=== PATIENT | male | born 1945 | race Caucasian/White ===

== ENCOUNTER 2018-10-19 23:59 | Inpatient (IN) | payer MEDICAID, MEDICARE ==
[~2018-10-19] VITALS: Ht 172.7 cm; Wt 59.0 kg
[2018-10-20] MEDS ORDERED: NEURONTIN800 MG ORAL (00:16)
[2018-10-20 00:30] VITALS: BP 127/76
[2018-10-20] MEDS ORDERED: cefTRIAXone 1 GM in NS 55 ML IVPB ONE (00:45)
--- NOTE | 2018-10-20 01:35 | Emergency Room Report ---
History of Present Illness General Chief Complaint: Upper Extremity Injury Source: Patient Present Illness HPI Patient is a 73-year-old male presented after increased right upper extremity swelling. Patient reports of increased painful swelling to the right upper extremity after injecting heroin. Patient states that he had onset of symptoms approximately 4 days ago.Patient denies any fever. Allergies: Coded Allergies: No Known Allergies (Unverified , 10/20/18) Patient History Past Medical History: see triage record Reviewed Nursing Documentation: PMH: Agreed; PSxH: Agreed Nursing Documentation-PMH Past Medical History: No Stated History Review of Systems All Other Systems: negative except mentioned in HPI Physical Exam Vital Signs Date Time Temp Pulse Resp B/P (MAP) Pulse Ox O2 Delivery O2 Flow Rate FiO2 10/20/18 00:11 98.8 97 16 127/76 97 Room Air Sp02 EP Interpretation: reviewed, normal General Appearance: normal inspection, well appearing, no apparent distress, alert, GCS 15 Head: atraumatic ENT: normal ENT inspection, hearing grossly normal, normal voice Neck: normal inspection, full range of motion, supple, no bony tend Respiratory: normal inspection, lungs clear, normal breath sounds, no respiratory distress, no retraction, no wheezing Cardiovascular #1: regular rate, rhythm, no edema Gastrointestinal: normal inspection, normal bowel sounds, non tender, soft, no guarding, no hernia Genitourinary: no CVA tenderness Musculoskeletal: normal inspection, back normal, normal range of motion Neurologic: normal inspection, alert, oriented x3, responsive, 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, speech normal Psychiatric: normal inspection, judgement/insight normal, mood/affect normal Skin: normal color, no rash, other - erythema and fluctuance right upper arm near elbow Procedures Incision and Drainage Incision and Drainage : Consent: Emergent Blade Size: 11 I & D Procedure: betadine prep, sterile drapes applied, sterile dressing applied Wound Location: upper extremity Wound Length (cm): 1 Wound Explored: clean Irrigated w/ Saline (ccs): 10 Anesthesia: Lidocaine w/ Epi Volume Anesthetic (ccs): 4 Sling Applied?: Yes Complications: None Medical Decision Making Diagnostic Impression: Primary Impression: Cellulitis and abscess of upper extremity ER Course Patient presented for right upper extremity pain and swelling. Differential diagnosis includes is not limited to abscess, necrotizing fasciitis, cellulitis among others. Laboratory testing was ordered due to patient's complexity of medical condition.Patient was consented for incision and drainage and abscess was drained with a 15 blade. Large amount of purulent material was expressed. Patient was noted to have some cellulitis to the upper extremity and will likely require IV antibiotics. Dr. Filipe Coffman was contacted for inpatient management Labs Test 10/20/18 01:56 White Blood Count 11.6 K/UL (4.8-10.8) Red Blood Count 5.76 M/UL (4.70-6.10) Hemoglobin 16.0 G/DL (14.2-18.0) Hematocrit 47.5 % (42.0-52.0) Mean Corpuscular Volume 82 FL (80-99) Mean Corpuscular Hemoglobin 27.7 PG (27.0-31.0) Mean Corpuscular Hemoglobin Concent 33.6 G/DL (32.0-36.0) Red Cell Distribution Width 13.1 % (11.6-14.8) Platelet Count 128 K/UL (150-450) Mean Platelet Volume 8.0 FL (6.5-10.1) Neutrophils (%) (Auto) 73.1 % (45.0-75.0) Lymphocytes (%) (Auto) 19.7 % (20.0-45.0) Monocytes (%) (Auto) 5.4 % (1.0-10.0) Eosinophils (%) (Auto) 1.1 % (0.0-3.0) Basophils (%) (Auto) 0.7 % (0.0-2.0) Sodium Level 132 MMOL/L (136-145) Potassium Level 3.8 MMOL/L (3.5-5.1) Chloride Level 97 MMOL/L (98-107) Carbon Dioxide Level 29 MMOL/L (21-32) Anion Gap 7 mmol/L (5-15) Blood Urea Nitrogen 20 mg/dL (7-18) Creatinine 0.9 MG/DL (0.55-1.30) Estimat Glomerular Filtration Rate mL/min (>60) Glucose Level 95 MG/DL (74-106) Lactic Acid Level 1.50 mmol/L (0.4-2.0) Calcium Level 9.3 MG/DL (8.5-10.1) Total Bilirubin 0.8 MG/DL (0.2-1.0) Aspartate Amino Transf (AST/SGOT) 34 U/L (15-37) Alanine Aminotransferase (ALT/SGPT) 50 U/L (12-78) Alkaline Phosphatase 113 U/L (46-116) Total Protein 8.7 G/DL (6.4-8.2) Albumin 3.5 G/DL (3.4-5.0) Globulin 5.2 g/dL Albumin/Globulin Ratio 0.7 (1.0-2.7) Last Vital Signs Date Time Temp Pulse Resp B/P (MAP) Pulse Ox O2 Delivery O2 Flow Rate FiO2 10/20/18 00:11 98.8 97 16 127/76 97 Room Air Status: improved Disposition: PLACE IN OBSERVATION Condition: Serious Referrals: NOT CHOSEN IPA/,REFERRING (PCP) Aramis Conti MD Oct 20, 2018 01:35
[2018-10-20 02:10] LABS: BASOPHILS % (AUTO) 0.7 % (0.0-2.0); EOSINOPHILS % (AUTO) 1.1 % (0.0-3.0); HEMATOCRIT 47.5 % (42.0-52.0); LYMPHOCYTES % (AUTO) 19.7 % (20.0-45.0); MEAN CORPUSCULAR VOLUME 82 FL (80-99); MONOCYTES % (AUTO) 5.4 % (1.0-10.0); NEUTROPHILS % (AUTO) 73.1 % (45.0-75.0); PLATELET COUNT 128 K/UL (150-450); RED BLOOD COUNT 5.76 M/UL (4.70-6.10); RED CELL DISTRIBUTION WIDTH 13.1 % (11.6-14.8); WHITE BLOOD COUNT 11.6 K/UL (4.8-10.8)
[2018-10-20 02:21] LABS: ANION GAP 7 mmol/L (5-15); BLOOD UREA NITROGEN 20 mg/dL (7-18); CALCIUM 9.3 MG/DL (8.5-10.1); CARBON DIOXIDE 29 MMOL/L (21-32); CHLORIDE 97 MMOL/L (98-107); CREATININE 0.9 MG/DL (0.55-1.30); POTASSIUM 3.8 MMOL/L (3.5-5.1); SODIUM 132 MMOL/L (136-145)
[2018-10-20 02:26] LABS: ALANINE AMINOTRANSFERASE 50 U/L (12-78); ALBUMIN 3.5 G/DL (3.4-5.0); ALBUMIN/GLOBULIN RATIO 0.7 (1.0-2.7); ALKALINE PHOSPHATASE 113 U/L (46-116); ASPARTATE AMINO TRANSFERASE 34 U/L (15-37); BILIRUBIN,TOTAL 0.8 MG/DL (0.2-1.0)
[2018-10-20 04:00] VITALS: BP 120/64
[2018-10-20 08:00] VITALS: BP 125/66
--- NOTE | 2018-10-20 11:28 | Consultation ---
Consult Note Consult Note asked to eval for low Na Patient is a 73-year-old male presented after increased right upper extremity swelling. Patient reports of increased painful swelling to the right upper extremity after injecting heroin. Patient states that he had onset of symptoms approximately 4 days ago.Patient denies any fever. Allergies: Coded Allergies: No Known Allergies (Unverified , 10/20/18) Assessment/Plan Low Na Etiologyn ? comments after further blood and urine results Cellulitis right arm after heroin injection Praful Bethea MD Oct 20, 2018 11:28
[2018-10-20 12:00] VITALS: BP 119/67
[2018-10-20] MEDS: Docusate 100mg cap ORAL SCH ×2 (12:26→17:02)
--- NOTE | 2018-10-20 14:27 | Consultation ---
History of Present Illness General Date patient seen: Oct 20, 2018 Reason for Hospitalization: Upper Extremity Injury Present Illness HPI 73 year old male with history of IVDA presented with right upper arm cellulitis / abscess. injecting heroin recently and developed worsening pain and swelling. came for evaluation and noted to have abscess s/p I&D. admitted for abx and care. surgery called to evaluate and assist with care. patient seen, chart reviewed, patient examined. Allergies: Coded Allergies: No Known Allergies (Unverified , 10/20/18) Medication History Scheduled Gabapentin* (Neurontin*), 800 MG ORAL Q8H, (Reported) Patient History History Provided By: Patient, Medical Record, PMD Healthcare decision maker Resuscitation status Advanced Directive on File Past Medical/Surgical History Past Medical/Surgical History: (1) Injury of right upper extremity (2) Cellulitis and abscess of upper extremity (3) Pain management (4) Drug addiction Review of Systems Review of Symptoms General ROS: no weight loss or fever Psychological ROS: no depression or mood changes, no memory loss Ophthalmic ROS: no visual changes or eye irritation ENT ROS: no nasal congestion, hearing loss, dizziness Allergy and Immunology ROS: no allergic symptoms or urticaria Hematological and Lymphatic ROS: no swollen glands, unusual bleeding or bruising Endocrine ROS: no polyuria, polydipsia, weight changes, temperature intolerance Respiratory ROS: no cough, shortness of breath, or wheezing Cardiovascular ROS: no chest pain or dyspnea on exertion Gastrointestinal ROS: denies abdominal pain, no bright red blood in stool. Musculoskeletal ROS: no myalgias or arthralgias Neurological ROS: no TIA or stroke symptoms Dermatological ROS: no new or changing skin lesions, rashes or pruritis Physical Exam Physical Exam General appearance: alert, cooperative, no distress, appears stated age Head: Normocephalic, without obvious abnormality, atraumatic Eyes: conjunctivae/corneas clear. PERRL, EOM's intact. Fundi benign Throat: Lips, mucosa, and tongue normal. Teeth and gums normal Neck: supple, symmetrical, trachea midline, no adenopathy, thyroid: not enlarged, symmetric, no tenderness/mass/nodules, no carotid bruit and no JVD Lungs: clear to auscultation bilaterally Heart: regular rate and rhythm, S1, S2 normal, no murmur, click, rub or gallop Abdomen: soft, non-tender. Bowel sounds normal. No masses, no organomegaly Extremities: extremities normal, atraumatic, right upper arm cellulitis Pulses: 2+ and symmetric Skin: Skin color, texture, turgor normal. No rashes or lesions Neurologic: Grossly normal Last 24 Hour Vital Signs Date Time Temp Pulse Resp B/P (MAP) Pulse Ox O2 Delivery O2 Flow Rate FiO2 10/20/18 12:00 98.7 84 20 119/67 (84) 98 10/20/18 09:52 Room Air 10/20/18 08:00 98.7 89 20 125/66 (85) 95 10/20/18 06:36 Room Air 10/20/18 04:30 98.8 84 12 120/64 97 Room Air 10/20/18 04:00 98.8 84 12 120/64 97 Room Air 10/20/18 00:30 98.8 96 16 127/76 97 Room Air 10/20/18 00:11 98.8 97 16 127/76 97 Room Air Intake and Output 10/19/18 10/20/18 19:00 07:00 Intake Total 55 ml Balance 55 ml Intake IV Total 55 ml # Voids 1 Laboratory Tests Test 10/20/18 01:56 White Blood Count 11.6 K/UL (4.8-10.8) H Red Blood Count 5.76 M/UL (4.70-6.10) Hemoglobin 16.0 G/DL (14.2-18.0) Hematocrit 47.5 % (42.0-52.0) Mean Corpuscular Volume 82 FL (80-99) Mean Corpuscular Hemoglobin 27.7 PG (27.0-31.0) Mean Corpuscular Hemoglobin Concent 33.6 G/DL (32.0-36.0) Red Cell Distribution Width 13.1 % (11.6-14.8) Platelet Count 128 K/UL (150-450) L Mean Platelet Volume 8.0 FL (6.5-10.1) Neutrophils (%) (Auto) 73.1 % (45.0-75.0) Lymphocytes (%) (Auto) 19.7 % (20.0-45.0) L Monocytes (%) (Auto) 5.4 % (1.0-10.0) Eosinophils (%) (Auto) 1.1 % (0.0-3.0) Basophils (%) (Auto) 0.7 % (0.0-2.0) Sodium Level 132 MMOL/L (136-145) L Potassium Level 3.8 MMOL/L (3.5-5.1) Chloride Level 97 MMOL/L (98-107) L Carbon Dioxide Level 29 MMOL/L (21-32) Anion Gap 7 mmol/L (5-15) Blood Urea Nitrogen 20 mg/dL (7-18) H Creatinine 0.9 MG/DL (0.55-1.30) Estimat Glomerular Filtration Rate mL/min (>60) Glucose Level 95 MG/DL (74-106) Lactic Acid Level 1.50 mmol/L (0.4-2.0) Calcium Level 9.3 MG/DL (8.5-10.1) Total Bilirubin 0.8 MG/DL (0.2-1.0) Aspartate Amino Transf (AST/SGOT) 34 U/L (15-37) Alanine Aminotransferase (ALT/SGPT) 50 U/L (12-78) Alkaline Phosphatase 113 U/L (46-116) Total Protein 8.7 G/DL (6.4-8.2) H Albumin 3.5 G/DL (3.4-5.0) Globulin 5.2 g/dL Albumin/Globulin Ratio 0.7 (1.0-2.7) L Height (Feet): 5 Height (Inches): 8.00 Weight (Pounds): 130 Medications Current Medications Medications (Trade) Dose Ordered Sig/Lana Route PRN Reason Start Time Stop Time Status Last Admin Dose Admin Acetaminophen (Tylenol) 650 mg Q4H PRN ORAL Mild Pain/Temp > 100.5 10/20/18 11:33 11/19/18 11:32 Cefepime HCl 2 gm/ Dextrose 55 ml @ 110 mls/hr EVERY 12 HOURS IV 10/20/18 14:00 10/27/18 13:59 Docusate Sodium (Colace) 100 mg THREE TIMES A DAY ORAL 10/20/18 13:00 11/19/18 12:59 10/20/18 12:26 Ondansetron HCl (Zofran) 4 mg Q6H PRN IVP Nausea & Vomiting 10/20/18 11:32 11/19/18 11:31 Pantoprazole (Protonix) 40 mg EVERY 12 HOURS ORAL 10/20/18 21:00 11/19/18 20:59 Sodium Chloride 1,000 ml @ 75 mls/hr [id number] IV 10/20/18 12:00 11/19/18 11:59 10/20/18 12:26 Vancomycin HCl (Vanco rx to dose) 1 ea DAILY PRN MISC Per rx protocol 10/20/18 12:15 11/19/18 12:14 Vancomycin HCl/ Dextrose 275 ml @ 183.333 mls/hr Q24H IVPB 10/20/18 14:30 10/25/18 14:29 Assessment/Plan Problem List: (1) Cellulitis and abscess of upper extremity Assessment & Plan: right upper arm cellulitis from IVDA with heroin. abscess s/ p I&D. on IV Abx small 1cm opening from I&D with bloody drainage packing and dressing changed at bedside by myself. wound evaluated cont with packing and dressing TID will monitor for improvement cont IV ABX AM labs will follow with recs. thank you ICD Codes: L03.119 - Cellulitis of unspecified part of limb; L02.419 - Cutaneous abscess of limb, unspecified SNOMED: [id number] Lucio Marks Oct 20, 2018 14:27
[2018-10-20] MEDS: Cefepime HCl 2 GM in D5W 55 ML IV SCH ×2 (14:32→21:09)
[2018-10-20 15:26] LABS: APPEARANCE,URINE CLEAR; BILIRUBIN, URINE NEGATIVE (NEGATIVE); COLOR,URINE BROWN; GLUCOSE, URINE (UA) NEGATIVE (NEGATIVE); KETONES,URINE NEGATIVE (NEGATIVE); LEUKOCYTE ESTERASE ,URINE 1+ (NEGATIVE); NITRITE,URINE NEGATIVE (NEGATIVE); PH,URINE 5 (4.5-8.0); PROTEIN,URINE NEGATIVE (NEGATIVE); UROBILINOGEN,URINE 8 MG/DL (0.0-1.0)
[2018-10-20] MEDS: Vancomycin 1.25gm Premix IVPB SCH (15:51)
[2018-10-20 16:00] VITALS: BP 114/61
--- NOTE | 2018-10-20 16:00 | Consultation ---
DATE OF CONSULTATION: 10/20/2018 INFECTIOUS DISEASES CONSULTATION CONSULTING PHYSICIAN: Александр Cerda M.D. PRIMARY ATTENDING PHYSICIAN: Filipe Martínez M.D. REASON FOR CONSULTATION: Right arm cellulitis, abscess. HISTORY OF PRESENT ILLNESS: This is a 73-year-old white male admitted today from home complaining of pain and swelling in right upper extremity. The patient had the injection of heroin around 4 days ago. Denies any fever. There was an abscess that was drained in the ER with removal 20 mL of pus. PAST MEDICAL HISTORY: The patient has hearing loss, cataract in both eyes, nicotine dependence. 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 ALLERGIES: Methadone. MEDICATIONS: Get a dose of ceftriaxone in the ER, getting Protonix, Colace, sodium chloride, Tylenol, Zofran. SOCIAL HISTORY: Smokes one-pack of cigarettes a day and IV drug abuse history. Denies alcohol drinking. He is single. REVIEW OF SYSTEMS: No fever. No chills. He is hard of hearing. No coughing. No shortness of breath. No nausea. No vomiting. No diarrhea. No problem passing urine. PHYSICAL EXAMINATION: VITAL SIGNS: Temperature 98.7, pulse 89, blood pressure 125/66. GENERAL APPEARANCE: Seems to be underweight, no acute distress. HEAD AND NECK: [place] conjunctiva. HEART: S1 and S2 regular. LUNGS: Clear. ABDOMEN: Soft. EXTREMITIES: Erythema, swelling, abscess in the right upper extremity above the elbow. No pedal edema. NEUROLOGIC: Awake, alert, oriented x3. LABORATORY AND DIAGNOSTIC DATA: WBC 11.6, hemoglobin 16, hematocrit 47.5, platelet 128. Sodium 132, potassium 3.8, chloride 97, bicarbonate 29, BUN 20, creatinine 0.9. Total protein is elevated at 8.7. Albumin 3.5. IMPRESSION: 1. Right upper extremity cellulitis and abscess. 2. IV drug abuse use heroin. 3. Nicotine dependence. 4. Hearing loss. 5. mild thrombocytopenia. 6. Cataract. RECOMMENDATION: We will start the patient on vancomycin and cefepime. We will obtain wound culture. Further surgical evaluation is pending. At the end of my exam, I thank Dr. Martínez, for involving me in the care of this patient. Александр Cerda M.D. DR: Rupesh JOB#: [id number] CC: JOYCE
--- NOTE | 2018-10-20 18:18 | Consultation ---
History of Present Illness General Chief Complaint: Upper Extremity Injury Present Illness Allergies: Coded Allergies: No Known Allergies (Unverified , 10/20/18) Medication History Scheduled Gabapentin* (Neurontin*), 800 MG ORAL Q8H, (Reported) Patient History Healthcare decision maker Resuscitation status Advanced Directive on File Physical Exam Last 24 Hour Vital Signs Date Time Temp Pulse Resp B/P (MAP) Pulse Ox O2 Delivery O2 Flow Rate FiO2 10/20/18 16:00 99.0 76 20 114/61 (78) 98 10/20/18 12:00 98.7 84 20 119/67 (84) 98 10/20/18 09:52 Room Air 10/20/18 08:00 98.7 89 20 125/66 (85) 95 10/20/18 06:36 Room Air 10/20/18 04:30 98.8 84 12 120/64 97 Room Air 10/20/18 04:00 98.8 84 12 120/64 97 Room Air 10/20/18 00:30 98.8 96 16 127/76 97 Room Air 10/20/18 00:11 98.8 97 16 127/76 97 Room Air Intake and Output 10/19/18 10/20/18 19:00 07:00 Intake Total 55 ml Balance 55 ml Intake IV Total 55 ml # Voids 1 Laboratory Tests Test 10/20/18 01:56 10/20/18 15:00 White Blood Count 11.6 K/UL (4.8-10.8) H Red Blood Count 5.76 M/UL (4.70-6.10) Hemoglobin 16.0 G/DL (14.2-18.0) Hematocrit 47.5 % (42.0-52.0) Mean Corpuscular Volume 82 FL (80-99) Mean Corpuscular Hemoglobin 27.7 PG (27.0-31.0) Mean Corpuscular Hemoglobin Concent 33.6 G/DL (32.0-36.0) Red Cell Distribution Width 13.1 % (11.6-14.8) Platelet Count 128 K/UL (150-450) L Mean Platelet Volume 8.0 FL (6.5-10.1) Neutrophils (%) (Auto) 73.1 % (45.0-75.0) Lymphocytes (%) (Auto) 19.7 % (20.0-45.0) L Monocytes (%) (Auto) 5.4 % (1.0-10.0) Eosinophils (%) (Auto) 1.1 % (0.0-3.0) Basophils (%) (Auto) 0.7 % (0.0-2.0) Sodium Level 132 MMOL/L (136-145) L Potassium Level 3.8 MMOL/L (3.5-5.1) Chloride Level 97 MMOL/L (98-107) L Carbon Dioxide Level 29 MMOL/L (21-32) Anion Gap 7 mmol/L (5-15) Blood Urea Nitrogen 20 mg/dL (7-18) H Creatinine 0.9 MG/DL (0.55-1.30) Estimat Glomerular Filtration Rate mL/min (>60) Glucose Level 95 MG/DL (74-106) Lactic Acid Level 1.50 mmol/L (0.4-2.0) Calcium Level 9.3 MG/DL (8.5-10.1) Total Bilirubin 0.8 MG/DL (0.2-1.0) Aspartate Amino Transf (AST/SGOT) 34 U/L (15-37) Alanine Aminotransferase (ALT/SGPT) 50 U/L (12-78) Alkaline Phosphatase 113 U/L (46-116) Total Protein 8.7 G/DL (6.4-8.2) H Albumin 3.5 G/DL (3.4-5.0) Globulin 5.2 g/dL Albumin/Globulin Ratio 0.7 (1.0-2.7) L Urine Color Brown Urine Appearance Clear Urine pH 5 (4.5-8.0) Urine Specific [place] 1.015 (1.005-1.035) Urine Protein Negative (NEGATIVE) Urine Glucose (UA) Negative (NEGATIVE) Urine Ketones Negative (NEGATIVE) Urine Blood Negative (NEGATIVE) Urine Nitrite Negative (NEGATIVE) Urine Bilirubin Negative (NEGATIVE) Urine Urobilinogen 8 MG/DL (0.0-1.0) H Urine Leukocyte Esterase 1+ (NEGATIVE) H Urine RBC 0-2 /HPF (0 - 0) H Urine WBC 2-4 /HPF (0 - 0) Urine Squamous Epithelial Cells None /LPF (NONE/OCC) Urine Bacteria Few /HPF (NONE) Urine Osmolality 498 mOsm/kg (429-449) H Urine Opiates Screen Positive (NEGATIVE) H Urine Barbiturates Screen Negative (NEGATIVE) Phencyclidine (PCP) Screen Negative (NEGATIVE) Urine Amphetamines Screen Negative (NEGATIVE) Urine Benzodiazepines Screen Negative (NEGATIVE) Urine Cocaine Screen Positive (NEGATIVE) H Urine Marijuana (THC) Screen Negative (NEGATIVE) Height (Feet): 5 Height (Inches): 8.00 Weight (Pounds): 130 Medications Current Medications Medications (Trade) Dose Ordered Sig/Lana Route PRN Reason Start Time Stop Time Status Last Admin Dose Admin Acetaminophen (Tylenol) 650 mg Q4H PRN ORAL Mild Pain/Temp > 100.5 10/20/18 11:33 11/19/18 11:32 Cefepime HCl 2 gm/ Dextrose 55 ml @ 110 mls/hr EVERY 12 HOURS IV 10/20/18 14:00 10/27/18 13:59 10/20/18 14:32 Docusate Sodium (Colace) 100 mg THREE TIMES A DAY ORAL 10/20/18 13:00 11/19/18 12:59 10/20/18 12:26 Methadone HCl (Methadone HCl) 80 mg DAILY PRN ORAL For Pain 10/20/18 15:30 10/27/18 15:29 10/20/18 15:51 Ondansetron HCl (Zofran) 4 mg Q6H PRN IVP Nausea & Vomiting 10/20/18 11:32 11/19/18 11:31 Pantoprazole (Protonix) 40 mg EVERY 12 HOURS ORAL 10/20/18 21:00 11/19/18 20:59 Sodium Chloride 1,000 ml @ 75 mls/hr [id number] IV 10/20/18 12:00 11/19/18 11:59 10/20/18 12:26 Vancomycin HCl (Vanco rx to dose) 1 ea DAILY PRN MISC Per rx protocol 10/20/18 12:15 11/19/18 12:14 Vancomycin HCl/ Dextrose 275 ml @ 183.333 mls/hr Q24H IVPB 10/20/18 14:30 10/25/18 14:29 10/20/18 15:51 Assessment/Plan Assessment: Hematology Oncology Consultation Date patient seen: Oct 20, 2018 Reason for Hospitalization: Upper Extremity Injury RFC: Thrombocytopenia and hyperproteinemia RECollin MD: Filipe Martínez 73 year old male with history of IVDA presented with right upper arm cellulitis / abscess. injecting heroin recently and developed worsening pain and swelling. came for evaluation and noted to have abscess s/p I&D. admitted for abx and care. surgery called to evaluate and assist with care. patient seen, chart reviewed, patient examined. Also renal called, heme called for low plt count and evaluation of potential bleed int he case of i&d. Allergies: No Known Allergies (Unverified , 10/20/18) Scheduled Gabapentin* (Neurontin*), 800 MG ORAL Q8H, (Reported) History Provided By: Patient, Medical Record, PMD Healthcare decision maker Resuscitation status Advanced Directive on File Past Medical/Surgical History: (1) Injury of right upper extremity (2) Cellulitis and abscess of upper extremity (3) Pain management (4) Drug addiction Review of Symptoms General ROS: no weight loss or fever Psychological ROS: no depression or mood changes Ophthalmic ROS: no visual changes or eye irritation ENT ROS: no nasal congestion, hearing loss, dizziness Allergy and Immunology ROS: no allergic symptoms Hematological and Lymphatic ROS: no swollen glands Endocrine ROS: no polyuria, polydipsia, weight changes, temperature intolerance Respiratory ROS: no cough, shortness of breath, or wheezing Cardiovascular ROS: no chest pain or dyspnea on exertion Gastrointestinal ROS: denies abdominal pain, no brbpr Musculoskeletal ROS: no myalgias or arthralgias Neurological ROS: no TIA or stroke symptoms Dermatological ROS: no new or changing skin lesions Physical Exam General appearance: alert, cooperative, no distress, appears stated age Head: Normocephalic, without obvious abnormality Eyes: conjunctivae/corneas clear. PERRL, EOM's intact Throat: Lips, mucosa, and tongue normal. Teeth Neck: supple, symmetrical, trachea midline, no adenopathy Lungs: clear to auscultation bilaterally Heart: regular rate and rhythm, S1, S2 normal Abdomen: soft, non-tender. Bowel sounds normal Extremities: extremities normal, atraumatic, right upper arm cellulitis s/p i&d Neurologic: Grossly normal Last 24 Hour Vital Signs Date Time Temp Pulse Resp B/P (MAP) Pulse Ox O2 Delivery O2 Flow Rate FiO2 10/20/18 12:00 98.7 84 20 119/67 (84) 98 10/20/18 09:52 Room Air 4/17/19 08:00 98.7 89 20 125/66 (85) 95 10/20/18 06:36 Room Air 10/20/18 04:30 98.8 84 12 120/64 97 Room Air 10/20/18 04:00 98.8 84 12 120/64 97 Room Air 10/20/18 00:30 98.8 96 16 127/76 97 Room Air 10/20/18 00:11 98.8 97 16 127/76 97 Room Air Intake and Output 10/19/18 10/20/18 19:00 07:00 Intake Total 55 ml Balance 55 ml Intake IV Total 55 ml # Voids 1 Laboratory Tests Test 10/20/18 01:56 White Blood Count 11.6 K/UL (4.8-10.8) H Red Blood Count 5.76 M/UL (4.70-6.10) Hemoglobin 16.0 G/DL (14.2-18.0) Hematocrit 47.5 % (42.0-52.0) Mean Corpuscular Volume 82 FL (80-99) Mean Corpuscular Hemoglobin 27.7 PG (27.0-31.0) Mean Corpuscular Hemoglobin Concent 33.6 G/DL (32.0-36.0) Red Cell Distribution Width 13.1 % (11.6-14.8) Platelet Count 128 K/UL (150-450) L Mean Platelet Volume 8.0 FL (6.5-10.1) Neutrophils (%) (Auto) 73.1 % (45.0-75.0) Lymphocytes (%) (Auto) 19.7 % (20.0-45.0) L Monocytes (%) (Auto) 5.4 % (1.0-10.0) Eosinophils (%) (Auto) 1.1 % (0.0-3.0) Basophils (%) (Auto) 0.7 % (0.0-2.0) Sodium Level 132 MMOL/L (136-145) L Potassium Level 3.8 MMOL/L (3.5-5.1) Chloride Level 97 MMOL/L (98-107) L Carbon Dioxide Level 29 MMOL/L (21-32) Anion Gap 7 mmol/L (5-15) Blood Urea Nitrogen 20 mg/dL (7-18) H Creatinine 0.9 MG/DL (0.55-1.30) Estimat Glomerular Filtration Rate mL/min (>60) Glucose Level 95 MG/DL (74-106) Lactic Acid Level 1.50 mmol/L (0.4-2.0) Calcium Level 9.3 MG/DL (8.5-10.1) Total Bilirubin 0.8 MG/DL (0.2-1.0) Aspartate Amino Transf (AST/SGOT) 34 U/L (15-37) Alanine Aminotransferase (ALT/SGPT) 50 U/L (12-78) Alkaline Phosphatase 113 U/L (46-116) Total Protein 8.7 G/DL (6.4-8.2) H Albumin 3.5 G/DL (3.4-5.0) Globulin 5.2 g/dL Albumin/Globulin Ratio 0.7 (1.0-2.7) L Height (Feet): 5 Medications Current Medications Medications (Trade) Dose Ordered Sig/Lana Route PRN Reason Start Time Stop Time Status Last Admin Dose Admin Acetaminophen (Tylenol) 650 mg Q4H PRN ORAL Mild Pain/Temp > 100.5 10/20/18 11:33 11/19/18 11:32 Cefepime HCl 2 gm/ Dextrose 55 ml @ 110 mls/hr EVERY 12 HOURS IV 10/20/18 14:00 10/27/18 13:59 Docusate Sodium (Colace) 100 mg THREE TIMES A DAY ORAL 10/20/18 13:00 11/19/18 12:59 10/20/18 12:26 Ondansetron HCl (Zofran) 4 mg Q6H PRN IVP Nausea & Vomiting 10/20/18 11:32 11/19/18 11:31 Pantoprazole (Protonix) 40 mg EVERY 12 HOURS ORAL 10/20/18 21:00 11/19/18 20:59 Sodium Chloride 1,000 ml @ 75 mls/hr [id number] IV 10/20/18 12:00 11/19/18 11:59 10/20/18 12:26 Vancomycin HCl (Vanco rx to dose) 1 ea DAILY PRN MISC Per rx protocol 10/20/18 12:15 11/19/18 12:14 Vancomycin HCl/ Dextrose 275 ml @ 183.333 mls/hr Q24H IVPB 10/20/18 14:30 10/25/18 14:29 Assessment and Recs; # Thrombocytopenia - potential causes multifactorial, evaluate liver and viral etiologies to begin, also could be related to underlying medications patient has received. --> Hep panel and HIV ordered --> US abd to evaluate for cirrhosis and hsm ordered --> Peripheral smear ordered to evaluate for blasts /schistocytes --> abx and other meds have been reviewed --> ok for ppx if plt >50k w/ either heparin or lovenox --> Transfuse if Plt < 20k and fever, or if Plt < 10k without fever # Hyperproteinemia with elev protein and decreased alb --> likely related to chronic ivdu --> obtain spep given low plts as well, r/o MM # Leukocytosis with elevated wbc --> recommend abx and s/p i&d # Cellulitis of the right upper ext --> hx of ivdu and now is s/p I&d --> if any bleeding consider vit K --> on abx as per id # IVDU hx with herioin use --> recommend cessation The timing of this note does not necessarily reflect the time of the patient was seen. Greatly appreciate consultation! Ace Roque MD Oct 20, 2018 18:18
--- NOTE | 2018-10-20 18:38 | Consultation ---
History of Present Illness General Date patient seen: Oct 20, 2018 Present Illness Allergies: Coded Allergies: No Known Allergies (Unverified , 10/20/18) Medication History Scheduled Gabapentin* (Neurontin*), 800 MG ORAL Q8H, (Reported) Patient History Healthcare decision maker Resuscitation status Advanced Directive on File Physical Exam Last 24 Hour Vital Signs Date Time Temp Pulse Resp B/P (MAP) Pulse Ox O2 Delivery O2 Flow Rate FiO2 10/20/18 16:00 99.0 76 20 114/61 (78) 98 10/20/18 12:00 98.7 84 20 119/67 (84) 98 10/20/18 09:52 Room Air 10/20/18 08:00 98.7 89 20 125/66 (85) 95 10/20/18 06:36 Room Air 10/20/18 04:30 98.8 84 12 120/64 97 Room Air 10/20/18 04:00 98.8 84 12 120/64 97 Room Air 10/20/18 00:30 98.8 96 16 127/76 97 Room Air 10/20/18 00:11 98.8 97 16 127/76 97 Room Air Intake and Output 10/19/18 10/20/18 19:00 07:00 Intake Total 55 ml Balance 55 ml IV Total 55 ml # Voids 1 Laboratory Tests Test 10/20/18 01:56 10/20/18 15:00 White Blood Count 11.6 K/UL (4.8-10.8) H Red Blood Count 5.76 M/UL (4.70-6.10) Hemoglobin 16.0 G/DL (14.2-18.0) Hematocrit 47.5 % (42.0-52.0) Mean Corpuscular Volume 82 FL (80-99) Mean Corpuscular Hemoglobin 27.7 PG (27.0-31.0) Mean Corpuscular Hemoglobin Concent 33.6 G/DL (32.0-36.0) Red Cell Distribution Width 13.1 % (11.6-14.8) Platelet Count 128 K/UL (150-450) L Mean Platelet Volume 8.0 FL (6.5-10.1) Neutrophils (%) (Auto) 73.1 % (45.0-75.0) Lymphocytes (%) (Auto) 19.7 % (20.0-45.0) L Monocytes (%) (Auto) 5.4 % (1.0-10.0) Eosinophils (%) (Auto) 1.1 % (0.0-3.0) Basophils (%) (Auto) 0.7 % (0.0-2.0) Reticulocyte Count Pending Sodium Level 132 MMOL/L (136-145) L Potassium Level 3.8 MMOL/L (3.5-5.1) Chloride Level 97 MMOL/L (98-107) L Carbon Dioxide Level 29 MMOL/L (21-32) Anion Gap 7 mmol/L (5-15) Blood Urea Nitrogen 20 mg/dL (7-18) H Creatinine 0.9 MG/DL (0.55-1.30) Estimat Glomerular Filtration Rate mL/min (>60) Glucose Level 95 MG/DL (74-106) Lactic Acid Level 1.50 mmol/L (0.4-2.0) Calcium Level 9.3 MG/DL (8.5-10.1) Total Bilirubin 0.8 MG/DL (0.2-1.0) Aspartate Amino Transf (AST/SGOT) 34 U/L (15-37) Alanine Aminotransferase (ALT/SGPT) 50 U/L (12-78) Alkaline Phosphatase 113 U/L (46-116) Total Protein 8.7 G/DL (6.4-8.2) H Albumin 3.5 G/DL (3.4-5.0) Globulin 5.2 g/dL Albumin/Globulin Ratio 0.7 (1.0-2.7) L HIV (1&2) Antibody Rapid Pending Urine Color Brown Urine Appearance Clear Urine pH 5 (4.5-8.0) Urine Specific [place] 1.015 (1.005-1.035) Urine Protein Negative (NEGATIVE) Urine Glucose (UA) Negative (NEGATIVE) Urine Ketones Negative (NEGATIVE) Urine Blood Negative (NEGATIVE) Urine Nitrite Negative (NEGATIVE) Urine Bilirubin Negative (NEGATIVE) Urine Urobilinogen 8 MG/DL (0.0-1.0) H Urine Leukocyte Esterase 1+ (NEGATIVE) H Urine RBC 0-2 /HPF (0 - 0) H Urine WBC 2-4 /HPF (0 - 0) Urine Squamous Epithelial Cells None /LPF (NONE/OCC) Urine Bacteria Few /HPF (NONE) Urine Osmolality 498 mOsm/kg (429-449) H Urine Opiates Screen Positive (NEGATIVE) H Urine Barbiturates Screen Negative (NEGATIVE) Phencyclidine (PCP) Screen Negative (NEGATIVE) Urine Amphetamines Screen Negative (NEGATIVE) Urine Benzodiazepines Screen Negative (NEGATIVE) Urine Cocaine Screen Positive (NEGATIVE) H Urine Marijuana (THC) Screen Negative (NEGATIVE) Height (Feet): 5 Height (Inches): 8.00 Weight (Pounds): 130 Medications Current Medications Medications (Trade) Dose Ordered Sig/Lana Route PRN Reason Start Time Stop Time Status Last Admin Dose Admin Acetaminophen (Tylenol) 650 mg Q4H PRN ORAL Mild Pain/Temp > 100.5 10/20/18 11:33 11/19/18 11:32 Cefepime HCl 2 gm/ Dextrose 55 ml @ 110 mls/hr EVERY 12 HOURS IV 10/20/18 14:00 10/27/18 13:59 10/20/18 14:32 Docusate Sodium (Colace) 100 mg THREE TIMES A DAY ORAL 10/20/18 13:00 11/19/18 12:59 10/20/18 12:26 Methadone HCl (Methadone HCl) 80 mg DAILY PRN ORAL For Pain 10/20/18 15:30 10/27/18 15:29 10/20/18 15:51 Ondansetron HCl (Zofran) 4 mg Q6H PRN IVP Nausea & Vomiting 10/20/18 11:32 11/19/18 11:31 Pantoprazole (Protonix) 40 mg EVERY 12 HOURS ORAL 10/20/18 21:00 11/19/18 20:59 Sodium Chloride 1,000 ml @ 75 mls/hr [id number] IV 10/20/18 12:00 11/19/18 11:59 10/20/18 12:26 Vancomycin HCl (Vanco rx to dose) 1 ea DAILY PRN MISC Per rx protocol 10/20/18 12:15 11/19/18 12:14 Vancomycin HCl/ Dextrose 275 ml @ 183.333 mls/hr Q24H IVPB 10/20/18 14:30 10/25/18 14:29 10/20/18 15:51 Assessment/Plan Assessment: (1) Right arm pain (2) Right arm abscess s/p I+D (3) Heroin abuse (4) Methadone maintenance seen dictated Shin James Oct 20, 2018 18:38
[2018-10-20] MEDS ORDERED: HYDROcodone/Acetamin 5/325 tab ORAL PRN (18:45)
[2018-10-20 20:00] VITALS: BP 107/60
[2018-10-20 20:55] LABS: INR 1.1 (0.9-1.1)
[2018-10-21] VITALS: BP 112/60
--- NOTE | 2018-10-21 02:30 | Consultation ---
DATE OF CONSULTATION: 10/20/2018 PAIN MANAGEMENT CONSULTATION CONSULTING PHYSICIAN: Elisa Vasques M.D. REFERRING PHYSICIAN: Filipe Martínez M.D. PHYSICIAN RN OCCUPATIONAL HEALTH: CAMERON Espinoza. CHIEF COMPLAINT: Right upper extremity pain. HISTORY OF PRESENT ILLNESS: This is a 73-year-old male, who is being seen on the Med/Surg floor of [facility] for initial pain management consultation. The patient was admitted under the care of Dr. Filipe Martínez due to right upper extremity abscess, status post I and D after injecting himself with a heroin needle. He has a history of heroin abuse. He is going to methadone clinic and the dose was verified as 109 mg daily, however, at this time, the patient is on 80 mg daily and was given a dose today. He is comfortable in the bed, however, reports that with dressing changes, his pain is severe. I discussed with the patient about starting him on [place] 5/325 one tablet every four hours as needed for pain. The patient seems to understand and we were consulted so that the patient would have adequate pain control while here in the hospital. PAST MEDICAL HISTORY: Neuropathy. PAST SURGICAL HISTORY: Lung collapse surgery. SOCIAL HISTORY: He is a smoker of tobacco, IV drug abuse. ALLERGIES: No known drug allergies. MEDICATIONS: Methadone, Neurontin. REVIEW OF SYSTEMS: Denies rash, fever, chills, sweating, dizziness, drowsiness, blurred vision, sore throat, or change in weight. No shortness of breath, chest pain, palpitations, or cough.. No nausea, vomiting, diarrhea, or blood in the stool or urine. No bowel or bladder incontinence. No dysuria. He complains of right upper extremity pain. PHYSICAL EXAMINATION: GENERAL: Alert, awake, and oriented. VITAL SIGNS: Blood pressure 114/61, heart rate is 76, oxygen saturation 98%, respirations 20, and temperature 99 degrees Fahrenheit. HEENT: PERRLA. NECK: Range of motion is full in all directions. No tenderness in paracervical muscles. No adenopathy. LUNGS: Decreased breath sounds bilaterally. HEART: S1 and S2. Regular. ABDOMEN: Soft and nontender. BACK: Range of motion is decreased due to the patient's condition. EXTREMITIES: Upper extremity range of motion is decreased due to the patient's condition. No cyanosis. No clubbing. Sensory is intact. Reflexes are not obtainable. No adenopathy. Bandages applied to the right biceps area. ASSESSMENT AND PLAN: This is a 73-year-old male with right arm abscess, status post I and D, right arm pain, heroin abuse, on methadone maintenance. The patient will be continued on methadone. He was started on [place] 5/325 one tablet every 4 hours as needed for severe pain. The patient was discussed with Dr. Vasques and Dr. Vasques concurred. We will follow the patient. Thank you very much for the courtesy of this consultation. Elisa Vasques M.D. CAMERON Hinton DR: OBI JOB#: [id number] CC: JOYCE
[2018-10-21 04:00] VITALS: BP 107/60
--- NOTE | 2018-10-21 06:15 | History and Physical Report ---
DATE OF ADMISSION: 10/20/2018 HISTORY OF PRESENT ILLNESS: The patient comes with upper extremity abscess from heroin and cellulitis, incised and drained by the ER doctor and 20 mL of purulent material came out. The patient has cellulitis. The patient also has a hearing deficit and admitted for antibiotic control. The patient denies nausea, vomiting, or diarrhea. Denies shortness of breath. Denies cough. PAST MEDICAL HISTORY: History of drug abuse and hearing deficit. PAST SURGICAL HISTORY: None known. ALLERGIES TO MEDICATIONS: Gabapentin. FAMILY HISTORY: Noncontributory. SOCIAL HISTORY: The patient has a history of smoking and drug abuse. REVIEW OF SYSTEMS: HEENT: Denies headaches. RESPIRATORY: Denies shortness of breath. Denies cough. CARDIOVASCULAR: Denies chest pain. GASTROINTESTINAL: Denies nausea, vomiting, or diarrhea. EXTREMITIES: Does have pain and infection of upper extremities. CREDIT INVESTIGATOR: No change in vision or speech pattern. PHYSICAL EXAMINATION: VITAL SIGNS: Temperature 98.7, pulse is 89, and blood pressure 125/66. HEENT: PERRLA. NECK: Supple. No lymphadenopathy. CHEST: Clear to auscultation. CARDIOVASCULAR: Regular rate and rhythm. No murmurs or extra sounds. GASTROINTESTINAL: Soft and nontender. No organomegaly. EXTREMITIES: Does have some abscess in the upper extremity. CREDIT INVESTIGATOR: No change in vision or speech pattern. Moves all four extremities. Reflexes equal on both sides. LABORATORY DATA: WBC of 11.6. Sodium 132, BUN of 20, and creatinine of 0.9. ASSESSMENT AND PLAN: Cellulitis of the left upper extremity at the IV heroin abuse site. I have asked Dr. Александр Cerda, Dr. Bethea, Dr. Vasques, and Dr. Lucio Marks to see the patient for possible as well as for the pain management as well as for antibiotics as well as for the treatment of the hyponatremia as well as azotemia. Filipe Martínez M.D. DR: KARLEY JOB#: [id number] CC:
[2018-10-21 08:00] VITALS: BP 105/61
[2018-10-21] MEDS: Docusate 100mg cap ORAL SCH ×3 (09:35→17:12)
[2018-10-21] MEDS: Cefepime HCl 2 GM in D5W 55 ML IV SCH ×2 (09:35→23:23)
[2018-10-21 10:07] LABS: BASOPHILS % (AUTO) 0.8 % (0.0-2.0); EOSINOPHILS % (AUTO) 1.7 % (0.0-3.0); HEMATOCRIT 36.6 % (42.0-52.0); HEMOGLOBIN 12.3 G/DL (14.2-18.0); LYMPHOCYTES % (AUTO) 24.4 % (20.0-45.0); MEAN CORPUSCULAR VOLUME 83 FL (80-99); MONOCYTES % (AUTO) 4.6 % (1.0-10.0); NEUTROPHILS % (AUTO) 68.5 % (45.0-75.0); PLATELET COUNT 102 K/UL (150-450); RED BLOOD COUNT 4.44 M/UL (4.70-6.10); RED CELL DISTRIBUTION WIDTH 13.1 % (11.6-14.8); WHITE BLOOD COUNT 4.8 K/UL (4.8-10.8)
[2018-10-21 10:37] LABS: ALANINE AMINOTRANSFERASE 44 U/L (12-78); ALBUMIN 2.4 G/DL (3.4-5.0); ALBUMIN/GLOBULIN RATIO 0.6 (1.0-2.7); ALKALINE PHOSPHATASE 80 U/L (46-116); ANION GAP 9 mmol/L (5-15); ASPARTATE AMINO TRANSFERASE 40 U/L (15-37); BILIRUBIN,TOTAL 0.4 MG/DL (0.2-1.0); BLOOD UREA NITROGEN 15 mg/dL (7-18); CARBON DIOXIDE 24 MMOL/L (21-32); CHLORIDE 105 MMOL/L (98-107); CHOLESTEROL 100 MG/DL (< 200); CREATINE KINASE 22 U/L (26-308); CREATININE 0.8 MG/DL (0.55-1.30); GAMMA GLUTAMYL TRANSPEPTIDASE 58 U/L (5-85); HDL CHOLESTEROL 29 MG/DL (40-60); PHOSPHORUS 2.6 MG/DL (2.5-4.9); POTASSIUM 3.6 MMOL/L (3.5-5.1); SODIUM 138 MMOL/L (136-145); TRIGLYCERIDES 47 MG/DL (30-150)
[2018-10-21 12:00] VITALS: BP 125/71
--- NOTE | 2018-10-21 12:47 | General Progress Note ---
Assessment/Plan Assessment: (1) Right arm pain (2) Right arm abscess s/p I+D (3) Heroin abuse (4) Methadone maintenance Patient will be continued on [place] as needed. We will increase the Methadone to 105mg as per pharmacy due to methadone clinic being at 109mg and pharmacy unable to give this dosage. D/w pharmacist. D/w Dr. Vasques and he concurred. Subjective Date patient seen: Oct 21, 2018 Time patient seen: 12:15 - pm Allergies: Coded Allergies: No Known Allergies (Unverified , 10/20/18) Subjective REVIEW OF SYSTEMS: Denies rash, fever, chills, sweating, dizziness, drowsiness, blurred vision, sore throat, or change in weight. No shortness of breath, chest pain, palpitations, or cough.. No nausea, vomiting, diarrhea, or blood in the stool or urine. No bowel or bladder incontinence. No dysuria. He complains of right upper extremity pain. SUBJECTIVE: Patient in bed and has taken one dose of [place]. Was not given Methadone due to dosage issues this will be changed. D/w nurse and pharmacist. Objective Last 24 Hour Vital Signs Date Time Temp Pulse Resp B/P (MAP) Pulse Ox O2 Delivery O2 Flow Rate FiO2 10/21/18 12:00 97.8 78 20 125/71 (89) 98 10/21/18 09:00 Room Air 10/21/18 08:00 98.4 75 18 105/61 (76) 97 10/21/18 04:00 99.1 69 18 107/60 (76) 98 10/21/18 00:00 97.4 66 18 112/60 (77) 96 10/20/18 21:00 Room Air 10/20/18 20:00 97.6 76 18 107/60 (76) 94 10/20/18 16:00 99.0 76 20 114/61 (78) 98 Intake and Output 10/20/18 10/21/18 19:00 07:00 Intake Total 635 ml 1205 ml Balance 635 ml 1205 ml Intake Oral 560 ml 400 ml IV Total 75 ml 805 ml # Voids 4 3 # Bowel Movements 2 Laboratory Tests 10/20/18 15:00: Urine Color Brown, Urine Appearance Clear, Urine pH 5, Urine Specific [place] 1.015, Urine Protein Negative, Urine Glucose (UA) Negative, Urine Ketones Negative, Urine Blood Negative, Urine Nitrite Negative, Urine Bilirubin Negative , Urine Urobilinogen 8H, Urine Leukocyte Esterase 1+H, Urine RBC 0-2H, Urine WBC 2-4, Urine Squamous Epithelial Cells None, Urine Bacteria Few, Urine Osmolality 498H, Urine Opiates Screen PositiveH, Urine Barbiturates Screen Negative, Phencyclidine (PCP) Screen Negative, Urine Amphetamines Screen Negative, Urine Benzodiazepines Screen Negative, Urine Cocaine Screen PositiveH , Urine Marijuana (THC) Screen Negative 10/20/18 20:00: Prothrombin Time 11.6H, Prothromb Time International Ratio 1.1, Total Protein ( PEP) [Pending], Albumin (PEP) [Pending], Globulin (PEP) [Pending], Albumin/ Globulin Ratio [Pending], Lnbet-2-Pougmspvr [Pending], Vqans-7-Etbpnnnkh [ Pending], Beta Globulins [Pending], Beta Gamma Globulin [Pending], PEP Abnormal Protein Bands [Pending], Protein Electrophoresis Interpret [Pending], Hepatitis A IgM Antibody [Pending], Hepatitis B Surface Antigen [Pending], Hepatitis B Core IgM Antibody [Pending], Hepatitis C Antibody [Pending] 10/21/18 09:55: Albumin/Globulin Ratio 0.6L, White Blood Count 4.8#, Red Blood Count 4.44L, Hemoglobin 12.3L, Hematocrit 36.6L, Mean Corpuscular Volume 83, Mean Corpuscular Hemoglobin 27.7, Mean Corpuscular Hemoglobin Concent 33.5, Red Cell Distribution Width 13.1, Platelet Count 102L, Mean Platelet Volume 6.3L, Neutrophils (%) (Auto) 68.5, Lymphocytes (%) (Auto) 24.4, Monocytes (%) (Auto) 4.6, Eosinophils (%) (Auto) 1.7, Basophils (%) (Auto) 0.8, Sodium Level 138, Potassium Level 3.6, Chloride Level 105, Carbon Dioxide Level 24, Anion Gap 9, Blood Urea Nitrogen 15, Creatinine 0.8, Estimat Glomerular Filtration Rate , Glucose Level 147H, Hemoglobin A1c 5.3, Osmolality 288L, Uric Acid 5.4, Calcium Level 8.0L, Phosphorus Level 2.6, Magnesium Level 1.6L, Total Bilirubin 0.4, Gamma Glutamyl Transpeptidase 58, Aspartate Amino Transf (AST/SGOT) 40H, Alanine Aminotransferase (ALT/SGPT) 44, Alkaline Phosphatase 80, Total Creatine Kinase 22L, C-Reactive Protein, Quantitative 4.5H, Pro-B-Type Natriuretic Peptide 153H, Total Protein 6.6, Albumin 2.4L, Globulin 4.2, Triglycerides Level 47, Cholesterol Level 100, LDL Cholesterol 64, HDL Cholesterol 29L, Cholesterol/HDL Ratio 3.4, Vitamin B12 Level 395, Folate 18.9, Thyroid Stimulating Hormone (TSH) 1.236 Height (Feet): 5 Height (Inches): 8.00 Weight (Pounds): 130 Objective GENERAL: Alert, awake, and oriented. LUNGS: Decreased breath sounds bilaterally. HEART: S1 and S2. Regular. ABDOMEN: Soft and nontender. EXTREMITIES: No cyanosis. No clubbing. NEURO: No changes. Shin James Oct 21, 2018 12:47
--- NOTE | 2018-10-21 13:10 | Infectious Diseases Prog Note ---
Assessment/Plan Assessment/Plan IMPRESSION: 1. Right upper extremity cellulitis and abscess. 2. IV drug abuse use heroin. 3. Nicotine dependence. 4. Hearing loss. 5. mild thrombocytopenia. 6. Cataract. RECOMMENDATION: Continue vancomycin and cefepime Subjective ROS Limited/Unobtainable: No Constitutional: Reports: no symptoms, other - feels better Respiratory: Reports: no symptoms Gastrointestinal/Abdominal: Reports: no symptoms Genitourinary: Reports: no symptoms Musculoskeletal: Reports: pain, other - in right arm Allergies: Coded Allergies: No Known Allergies (Unverified , 10/20/18) Objective Vital Signs Last 24 Hour Vital Signs Date Time Temp Pulse Resp B/P (MAP) Pulse Ox O2 Delivery O2 Flow Rate FiO2 10/21/18 12:00 97.8 78 20 125/71 (89) 98 10/21/18 09:00 Room Air 10/21/18 08:00 98.4 75 18 105/61 (76) 97 10/21/18 04:00 99.1 69 18 107/60 (76) 98 10/21/18 00:00 97.4 66 18 112/60 (77) 96 10/20/18 21:00 Room Air 10/20/18 20:00 97.6 76 18 107/60 (76) 94 10/20/18 16:00 99.0 76 20 114/61 (78) 98 Height (Feet): 5 Height (Inches): 8.00 Weight (Pounds): 130 General Appearance: no acute distress HEENT: mucous membranes moist Respiratory/Chest: normal breath sounds Cardiovascular: normal rate Abdomen: soft, non tender Extremities: other - edema, erythema of right arm Neurologic/Psychiatric: alert, oriented x 3, responsive Microbiology Date/Time Source Procedure Growth Status 10/20/18 01:56 Blood Blood Culture - Preliminary NO GROWTH AFTER 24 HOURS Resulted 10/20/18 17:40 Arm Right Gram Stain Pending Resulted 10/20/18 17:40 Arm Right Wound Culture - Preliminary NO GROWTH Resulted Laboratory Tests Test 10/20/18 15:00 10/20/18 20:00 10/21/18 09:55 Urine Color Brown Urine Appearance Clear Urine pH 5 (4.5-8.0) Urine Specific [place] 1.015 (1.005-1.035) Urine Protein Negative (NEGATIVE) Urine Glucose (UA) Negative (NEGATIVE) Urine Ketones Negative (NEGATIVE) Urine Blood Negative (NEGATIVE) Urine Nitrite Negative (NEGATIVE) Urine Bilirubin Negative (NEGATIVE) Urine Urobilinogen 8 MG/DL (0.0-1.0) H Urine Leukocyte Esterase 1+ (NEGATIVE) H Urine RBC 0-2 /HPF (0 - 0) H Urine WBC 2-4 /HPF (0 - 0) Urine Squamous Epithelial Cells None /LPF (NONE/OCC) Urine Bacteria Few /HPF (NONE) Urine Osmolality 498 mOsm/kg (429-449) H Urine Opiates Screen Positive (NEGATIVE) H Urine Barbiturates Screen Negative (NEGATIVE) Phencyclidine (PCP) Screen Negative (NEGATIVE) Urine Amphetamines Screen Negative (NEGATIVE) Urine Benzodiazepines Screen Negative (NEGATIVE) Urine Cocaine Screen Positive (NEGATIVE) H Urine Marijuana (THC) Screen Negative (NEGATIVE) Prothrombin Time 11.6 SEC (9.30-11.50) H Prothromb Time International Ratio 1.1 (0.9-1.1) Total Protein (PEP) Pending Albumin (PEP) Pending Globulin (PEP) Pending Albumin/Globulin Ratio Pending 0.6 (1.0-2.7) L Pgksd-6-Usnvgxefu Pending Tiqoy-6-Camasbdaj Pending Beta Globulins Pending Beta Gamma Globulin Pending PEP Abnormal Protein Bands Pending Protein Electrophoresis Interpret Pending Hepatitis A IgM Antibody Pending Hepatitis B Surface Antigen Pending Hepatitis B Core IgM Antibody Pending Hepatitis C Antibody Pending White Blood Count 4.8 K/UL (4.8-10.8) # Red Blood Count 4.44 M/UL (4.70-6.10) L Hemoglobin 12.3 G/DL (14.2-18.0) L Hematocrit 36.6 % (42.0-52.0) L Mean Corpuscular Volume 83 FL (80-99) Mean Corpuscular Hemoglobin 27.7 PG (27.0-31.0) Mean Corpuscular Hemoglobin Concent 33.5 G/DL (32.0-36.0) Red Cell Distribution Width 13.1 % (11.6-14.8) Platelet Count 102 K/UL (150-450) L Mean Platelet Volume 6.3 FL (6.5-10.1) L Neutrophils (%) (Auto) 68.5 % (45.0-75.0) Lymphocytes (%) (Auto) 24.4 % (20.0-45.0) Monocytes (%) (Auto) 4.6 % (1.0-10.0) Eosinophils (%) (Auto) 1.7 % (0.0-3.0) Basophils (%) (Auto) 0.8 % (0.0-2.0) Sodium Level 138 MMOL/L (136-145) Potassium Level 3.6 MMOL/L (3.5-5.1) Chloride Level 105 MMOL/L (98-107) Carbon Dioxide Level 24 MMOL/L (21-32) Anion Gap 9 mmol/L (5-15) Blood Urea Nitrogen 15 mg/dL (7-18) Creatinine 0.8 MG/DL (0.55-1.30) Estimat Glomerular Filtration Rate mL/min (>60) Glucose Level 147 MG/DL (74-106) H Hemoglobin A1c 5.3 % (4.3-6.0) Osmolality 288 mOsm/kg (297-317) L Uric Acid 5.4 MG/DL (2.6-7.2) Calcium Level 8.0 MG/DL (8.5-10.1) L Phosphorus Level 2.6 MG/DL (2.5-4.9) Magnesium Level 1.6 MG/DL (1.8-2.4) L Total Bilirubin 0.4 MG/DL (0.2-1.0) Gamma Glutamyl Transpeptidase 58 U/L (5-85) Aspartate Amino Transf (AST/SGOT) 40 U/L (15-37) H Alanine Aminotransferase (ALT/SGPT) 44 U/L (12-78) Alkaline Phosphatase 80 U/L (46-116) Total Creatine Kinase 22 U/L (26-308) L C-Reactive Protein, Quantitative 4.5 mg/dL (0.00-0.90) H Pro-B-Type Natriuretic Peptide 153 pg/mL (0-125) H Total Protein 6.6 G/DL (6.4-8.2) Albumin 2.4 G/DL (3.4-5.0) L Globulin 4.2 g/dL Triglycerides Level 47 MG/DL (30-150) Cholesterol Level 100 MG/DL (< 200) LDL Cholesterol 64 mg/dL (<100) HDL Cholesterol 29 MG/DL (40-60) L Cholesterol/HDL Ratio 3.4 (3.3-4.4) Vitamin B12 Level 395 PG/ML (193-986) Folate 18.9 NG/ML (8.6-58.9) Thyroid Stimulating Hormone (TSH) 1.236 uiU/mL (0.358-3.740) Current Medications Medications (Trade) Dose Ordered Sig/Lana Route PRN Reason Start Time Stop Time Status Last Admin Dose Admin Acetaminophen (Tylenol) 650 mg Q4H PRN ORAL Mild Pain/Temp > 100.5 10/20/18 11:33 11/19/18 11:32 Acetaminophen/ Hydrocodone Bitart ([place] 5/325) 1 tab Q4H PRN ORAL severe pain 10/20/18 18:45 10/27/18 18:44 10/20/18 22:13 Cefepime HCl 2 gm/ Dextrose 55 ml @ 110 mls/hr EVERY 12 HOURS IV 10/20/18 14:00 10/27/18 13:59 10/21/18 09:35 Docusate Sodium (Colace) 100 mg THREE TIMES A DAY ORAL 10/20/18 13:00 11/19/18 12:59 10/21/18 12:24 Gabapentin (Neurontin) 600 mg THREE TIMES A DAY ORAL 10/20/18 18:45 11/19/18 18:44 10/21/18 12:24 Methadone HCl (Methadone HCl) 5 mg DAILY ORAL 10/21/18 13:05 10/28/18 13:04 Methadone HCl (Methadone HCl) 100 mg DAILY ORAL 10/21/18 13:06 10/28/18 12:59 Ondansetron HCl (Zofran) 4 mg Q6H PRN IVP Nausea & Vomiting 10/20/18 11:32 11/19/18 11:31 Pantoprazole (Protonix) 40 mg EVERY 12 HOURS ORAL 10/20/18 21:00 11/19/18 20:59 10/21/18 09:35 Sodium Chloride 1,000 ml @ 75 mls/hr [id number] IV 10/20/18 12:00 11/19/18 11:59 10/21/18 02:46 Vancomycin HCl (Vanco rx to dose) 1 ea DAILY PRN MISC Per rx protocol 10/20/18 12:15 11/19/18 12:14 Vancomycin HCl/ Dextrose 275 ml @ 183.333 mls/hr Q24H IVPB 10/20/18 14:30 10/25/18 14:29 10/20/18 15:51 Александр Cerda MD Oct 21, 2018 13:10
--- NOTE | 2018-10-21 14:32 | Diagnostic Imaging Report ---
Indication: Hepatitis C. Abdominal pain Technique: A plantar grayscale and duplex Doppler evaluation of the abdomen Comparison: None Findings: Subtle micronodular contour of the liver. The liver is normal in size, with the right lobe measuring 15 cm in length. Hepatic echogenicity is slightly coarsened and increased. No focal hepatic mass lesion is appreciated sonographically. Imaged hepatic veins appear patent. The main portal vein appears patent with normal direction of flow. Multiple gallstones are noted within the gallbladder. There is no gallbladder wall thickening or pericholecystic fluid. Sonographic Cam sign was reported as negative. The common bile duct is within the upper normal limits for age measuring between 7 to 8 mm. No discrete choledocholithiasis identified. No intrahepatic biliary ductal dilatation. Imaged portions of the pancreas grossly unremarkable. Spleen is enlarged, measuring 17 cm in length. There is kidneys demonstrate normal echogenicity. There is no evidence of hydronephrosis bilaterally. Renal size is symmetric. A subcentimeter anechoic structure is noted in the upper pole right kidney with imaging suggesting possible cirrhosis. No ascites is demonstrated. IMPRESSION: Findings nodular contour of the liver and coarsened hepatic echotexture suggestive of cirrhosis. No sonographically appreciable focal hepatic mass lesion. Cholelithiasis without sonographic evidence of acute cholecystitis. Splenomegaly
--- NOTE | 2018-10-21 15:24 | Surgery Progress Note ---
Surgery Progress Note Subjective Additional Comments leukocytosis resolved. cellulitis slowly improving. no n/v/f/c. Objective Last 24 Hour Vital Signs Date Time Temp Pulse Resp B/P (MAP) Pulse Ox O2 Delivery O2 Flow Rate FiO2 10/21/18 12:00 97.8 78 20 125/71 (89) 98 10/21/18 09:00 Room Air 10/21/18 08:00 98.4 75 18 105/61 (76) 97 10/21/18 04:00 99.1 69 18 107/60 (76) 98 10/21/18 00:00 97.4 66 18 112/60 (77) 96 10/20/18 21:00 Room Air 10/20/18 20:00 97.6 76 18 107/60 (76) 94 10/20/18 16:00 99.0 76 20 114/61 (78) 98 I&O Intake and Output 10/20/18 10/21/18 19:00 07:00 Intake Total 635 ml 1205 ml Balance 635 ml 1205 ml Intake Oral 560 ml 400 ml IV Total 75 ml 805 ml # Voids 4 3 # Bowel Movements 2 Dressing: saturated Wound: other Drains: other Cardiovascular: RSR Respiratory: clear Abdomen: soft, present bowel sounds, non-distended Extremities: edema, tenderness Laboratory Tests Test 10/20/18 20:00 10/21/18 09:55 Prothrombin Time 11.6 SEC (9.30-11.50) H Prothromb Time International Ratio 1.1 (0.9-1.1) Total Protein (PEP) Pending Albumin (PEP) Pending Globulin (PEP) Pending Albumin/Globulin Ratio Pending 0.6 (1.0-2.7) L Estjn-2-Bshyxjsgf Pending Gfrei-1-Cksodgkrs Pending Beta Globulins Pending Beta Gamma Globulin Pending PEP Abnormal Protein Bands Pending Protein Electrophoresis Interpret Pending Hepatitis A IgM Antibody Pending Hepatitis B Surface Antigen Pending Hepatitis B Core IgM Antibody Pending Hepatitis C Antibody Pending White Blood Count 4.8 K/UL (4.8-10.8) # Red Blood Count 4.44 M/UL (4.70-6.10) L Hemoglobin 12.3 G/DL (14.2-18.0) L Hematocrit 36.6 % (42.0-52.0) L Mean Corpuscular Volume 83 FL (80-99) Mean Corpuscular Hemoglobin 27.7 PG (27.0-31.0) Mean Corpuscular Hemoglobin Concent 33.5 G/DL (32.0-36.0) Red Cell Distribution Width 13.1 % (11.6-14.8) Platelet Count 102 K/UL (150-450) L Mean Platelet Volume 6.3 FL (6.5-10.1) L Neutrophils (%) (Auto) 68.5 % (45.0-75.0) Lymphocytes (%) (Auto) 24.4 % (20.0-45.0) Monocytes (%) (Auto) 4.6 % (1.0-10.0) Eosinophils (%) (Auto) 1.7 % (0.0-3.0) Basophils (%) (Auto) 0.8 % (0.0-2.0) Sodium Level 138 MMOL/L (136-145) Potassium Level 3.6 MMOL/L (3.5-5.1) Chloride Level 105 MMOL/L (98-107) Carbon Dioxide Level 24 MMOL/L (21-32) Anion Gap 9 mmol/L (5-15) Blood Urea Nitrogen 15 mg/dL (7-18) Creatinine 0.8 MG/DL (0.55-1.30) Estimat Glomerular Filtration Rate mL/min (>60) Glucose Level 147 MG/DL (74-106) H Hemoglobin A1c 5.3 % (4.3-6.0) Osmolality 288 mOsm/kg (297-317) L Uric Acid 5.4 MG/DL (2.6-7.2) Calcium Level 8.0 MG/DL (8.5-10.1) L Phosphorus Level 2.6 MG/DL (2.5-4.9) Magnesium Level 1.6 MG/DL (1.8-2.4) L Total Bilirubin 0.4 MG/DL (0.2-1.0) Gamma Glutamyl Transpeptidase 58 U/L (5-85) Aspartate Amino Transf (AST/SGOT) 40 U/L (15-37) H Alanine Aminotransferase (ALT/SGPT) 44 U/L (12-78) Alkaline Phosphatase 80 U/L (46-116) Total Creatine Kinase 22 U/L (26-308) L C-Reactive Protein, Quantitative 4.5 mg/dL (0.00-0.90) H Pro-B-Type Natriuretic Peptide 153 pg/mL (0-125) H Total Protein 6.6 G/DL (6.4-8.2) Albumin 2.4 G/DL (3.4-5.0) L Globulin 4.2 g/dL Triglycerides Level 47 MG/DL (30-150) Cholesterol Level 100 MG/DL (< 200) LDL Cholesterol 64 mg/dL (<100) HDL Cholesterol 29 MG/DL (40-60) L Cholesterol/HDL Ratio 3.4 (3.3-4.4) Vitamin B12 Level 395 PG/ML (193-986) Folate 18.9 NG/ML (8.6-58.9) Thyroid Stimulating Hormone (TSH) 1.236 uiU/mL (0.358-3.740) Plan Problems: (1) Cellulitis and abscess of upper extremity Assessment & Plan: right upper arm cellulitis from IVDA with heroin. abscess s/ p I&D. on IV Abx small 1cm opening from I&D with bloody drainage packing and dressing changed at bedside by myself. wound evaluated cont with packing and dressing TID will monitor for improvement cont IV ABX AM labs will follow with recs. thank you Lucio Marks Oct 21, 2018 15:24
[2018-10-21] MEDS: Vancomycin 1.25gm Premix IVPB SCH (15:26)
[2018-10-21 16:00] VITALS: BP 128/75
--- NOTE | 2018-10-21 17:17 | Nephrology Progress Note ---
Assessment/Plan Problem List: (1) Dehydration (2) Hyponatremia (3) Cellulitis and abscess of upper extremity (4) Drug addiction Assessment: Heroin , Coccain in urine Plan IV mag DC IV fluid on cefepime and vanco monitor lytes Subjective ROS Limited/Unobtainable: No Objective Objective Last 24 Hour Vital Signs Date Time Temp Pulse Resp B/P (MAP) Pulse Ox O2 Delivery O2 Flow Rate FiO2 10/21/18 16:00 98.3 75 18 128/75 (92) 95 10/21/18 12:00 97.8 78 20 125/71 (89) 98 10/21/18 09:00 Room Air 10/21/18 08:00 98.4 75 18 105/61 (76) 97 10/21/18 04:00 99.1 69 18 107/60 (76) 98 10/21/18 00:00 97.4 66 18 112/60 (77) 96 10/20/18 21:00 Room Air 10/20/18 20:00 97.6 76 18 107/60 (76) 94 Intake and Output 10/20/18 10/21/18 19:00 07:00 Intake Total 635 ml 1205 ml Balance 635 ml 1205 ml Intake Oral 560 ml 400 ml IV Total 75 ml 805 ml # Voids 4 3 # Bowel Movements 2 Laboratory Tests 10/20/18 20:00: Prothrombin Time 11.6H, Prothromb Time International Ratio 1.1, Total Protein ( PEP) [Pending], Albumin (PEP) [Pending], Globulin (PEP) [Pending], Albumin/ Globulin Ratio [Pending], Qehlu-2-Wchvyhqbw [Pending], Svsrp-2-Kamciehob [ Pending], Beta Globulins [Pending], Beta Gamma Globulin [Pending], PEP Abnormal Protein Bands [Pending], Protein Electrophoresis Interpret [Pending], Hepatitis A IgM Antibody [Pending], Hepatitis B Surface Antigen [Pending], Hepatitis B Core IgM Antibody [Pending], Hepatitis C Antibody [Pending] 10/21/18 09:55: Albumin/Globulin Ratio 0.6L, White Blood Count 4.8#, Red Blood Count 4.44L, Hemoglobin 12.3L, Hematocrit 36.6L, Mean Corpuscular Volume 83, Mean Corpuscular Hemoglobin 27.7, Mean Corpuscular Hemoglobin Concent 33.5, Red Cell Distribution Width 13.1, Platelet Count 102L, Mean Platelet Volume 6.3L, Neutrophils (%) (Auto) 68.5, Lymphocytes (%) (Auto) 24.4, Monocytes (%) (Auto) 4.6, Eosinophils (%) (Auto) 1.7, Basophils (%) (Auto) 0.8, Sodium Level 138, Potassium Level 3.6, Chloride Level 105, Carbon Dioxide Level 24, Anion Gap 9, Blood Urea Nitrogen 15, Creatinine 0.8, Estimat Glomerular Filtration Rate , Glucose Level 147H, Hemoglobin A1c 5.3, Osmolality 288L, Uric Acid 5.4, Calcium Level 8.0L, Phosphorus Level 2.6, Magnesium Level 1.6L, Total Bilirubin 0.4, Gamma Glutamyl Transpeptidase 58, Aspartate Amino Transf (AST/SGOT) 40H, Alanine Aminotransferase (ALT/SGPT) 44, Alkaline Phosphatase 80, Total Creatine Kinase 22L, C-Reactive Protein, Quantitative 4.5H, Pro-B-Type Natriuretic Peptide 153H, Total Protein 6.6, Albumin 2.4L, Globulin 4.2, Triglycerides Level 47, Cholesterol Level 100, LDL Cholesterol 64, HDL Cholesterol 29L, Cholesterol/HDL Ratio 3.4, Vitamin B12 Level 395, Folate 18.9, Thyroid Stimulating Hormone (TSH) 1.236 Height (Feet): 5 Height (Inches): 8.00 Weight (Pounds): 130 General Appearance: no apparent distress Cardiovascular: normal rate Respiratory/Chest: lungs clear Abdomen: soft Extremities: other - right arm cellulitis Praful Bethea MD Oct 21, 2018 17:17
--- NOTE | 2018-10-21 18:20 | General Progress Note ---
Assessment/Plan Assessment: Assessment and Recs; # Thrombocytopenia - potential causes multifactorial, evaluate liver and viral etiologies to begin, also could be related to underlying medications patient has received. early cirrhosis and splenomegaly is noted on us, could also be 2/ 2 infection --> Hep panel and HIV ordered --> US abdshow Findings nodular contour of the liver and coarsened hepatic echotexture suggestive of cirrhosis. No sonographically appreciable focal hepatic mass lesion. Cholelithiasis without sonographic evidence of acute cholecystitis. Splenomegaly --> Peripheral smear ordered to evaluate for blasts /schistocytes does not show at this time --> abx and other meds have been reviewed --> ok for ppx if plt >50k w/ either heparin or lovenox --> Transfuse if Plt < 20k and fever, or if Plt < 10k without fever # Hyperproteinemia with elev protein and decreased alb --> likely related to chronic ivdu --> obtain spep given low plts as well, r/o MM # Leukocytosis with elevated wbc --> recommend abx and s/p i&d # Cellulitis of the right upper ext --> hx of ivdu and now is s/p I&d --> if any bleeding consider vit K --> on abx as per id # IVDU hx with herioin use --> recommend cessation The timing of this note does not necessarily reflect the time of the patient was seen. Greatly appreciate consultation! Subjective Constitutional: Denies: no symptoms, chills, diaphoresis, fever, malaise, weakness, other HEENT: Denies: no symptoms, eye pain, blurred vision, tearing, double vision, ear pain, ear discharge, nose pain, nose congestion, throat pain, throat swelling, mouth pain, mouth swelling, other Respiratory: Denies: no symptoms, cough, orthopnea, shortness of breath, SOB with excertion, SOB at rest, sputum, stridor, wheezing, other Gastrointestinal/Abdominal: Denies: no symptoms, abdomen distended, abdominal pain, black stools, tarry stools, blood in stool, constipated, diarrhea, difficulty swallowing, nausea, poor appetite, poor fluid intake, rectal bleeding , vomiting, other Neurologic/Psychiatric: Denies: no symptoms, anxiety, depressed, emotional problems, headache, numbness, paresthesia, pre-existing deficit, seizure, tingling, tremors, weakness, other Endocrine: Denies: no symptoms, excessive sweating, flushing, intolerance to cold, intolerance to heat, increased hunger, increased thirst, increased urine, unexplained weight gain, unexplained weight loss, other Allergies: Coded Allergies: No Known Allergies (Unverified , 10/20/18) Subjective 10/21: on cefe, vanc, getting norco prn, wbc better Objective Last 24 Hour Vital Signs Date Time Temp Pulse Resp B/P (MAP) Pulse Ox O2 Delivery O2 Flow Rate FiO2 10/21/18 16:00 98.3 75 18 128/75 (92) 95 10/21/18 12:00 97.8 78 20 125/71 (89) 98 10/21/18 09:00 Room Air 10/21/18 08:00 98.4 75 18 105/61 (76) 97 10/21/18 04:00 99.1 69 18 107/60 (76) 98 10/21/18 00:00 97.4 66 18 112/60 (77) 96 10/20/18 21:00 Room Air 10/20/18 20:00 97.6 76 18 107/60 (76) 94 Intake and Output 10/20/18 10/21/18 19:00 07:00 Intake Total 635 ml 1205 ml Balance 635 ml 1205 ml Intake Oral 560 ml 400 ml IV Total 75 ml 805 ml # Voids 4 3 # Bowel Movements 2 Laboratory Tests 10/20/18 20:00: Prothrombin Time 11.6H, Prothromb Time International Ratio 1.1, Total Protein ( PEP) [Pending], Albumin (PEP) [Pending], Globulin (PEP) [Pending], Albumin/ Globulin Ratio [Pending], Tfkpi-4-Zfrrsxmbj [Pending], Qsuyk-4-Cqyeveqfl [ Pending], Beta Globulins [Pending], Beta Gamma Globulin [Pending], PEP Abnormal Protein Bands [Pending], Protein Electrophoresis Interpret [Pending], Hepatitis A IgM Antibody [Pending], Hepatitis B Surface Antigen [Pending], Hepatitis B Core IgM Antibody [Pending], Hepatitis C Antibody [Pending] 10/21/18 09:55: Albumin/Globulin Ratio 0.6L, White Blood Count 4.8#, Red Blood Count 4.44L, Hemoglobin 12.3L, Hematocrit 36.6L, Mean Corpuscular Volume 83, Mean Corpuscular Hemoglobin 27.7, Mean Corpuscular Hemoglobin Concent 33.5, Red Cell Distribution Width 13.1, Platelet Count 102L, Mean Platelet Volume 6.3L, Neutrophils (%) (Auto) 68.5, Lymphocytes (%) (Auto) 24.4, Monocytes (%) (Auto) 4.6, Eosinophils (%) (Auto) 1.7, Basophils (%) (Auto) 0.8, Sodium Level 138, Potassium Level 3.6, Chloride Level 105, Carbon Dioxide Level 24, Anion Gap 9, Blood Urea Nitrogen 15, Creatinine 0.8, Estimat Glomerular Filtration Rate , Glucose Level 147H, Hemoglobin A1c 5.3, Osmolality 288L, Uric Acid 5.4, Calcium Level 8.0L, Phosphorus Level 2.6, Magnesium Level 1.6L, Total Bilirubin 0.4, Gamma Glutamyl Transpeptidase 58, Aspartate Amino Transf (AST/SGOT) 40H, Alanine Aminotransferase (ALT/SGPT) 44, Alkaline Phosphatase 80, Total Creatine Kinase 22L, C-Reactive Protein, Quantitative 4.5H, Pro-B-Type Natriuretic Peptide 153H, Total Protein 6.6, Albumin 2.4L, Globulin 4.2, Triglycerides Level 47, Cholesterol Level 100, LDL Cholesterol 64, HDL Cholesterol 29L, Cholesterol/HDL Ratio 3.4, Vitamin B12 Level 395, Folate 18.9, Thyroid Stimulating Hormone (TSH) 1.236 Height (Feet): 5 Height (Inches): 8.00 Weight (Pounds): 130 Objective Physical Exam General appearance: alert, cooperative, no distress, appears stated age Head: Normocephalic, without obvious abnormality Eyes: conjunctivae/corneas clear. PERRL, EOM's intact Throat: Lips, mucosa, and tongue normal. Teeth Neck: supple, symmetrical, trachea midline, no adenopathy Lungs: clear to auscultation bilaterally Heart: regular rate and rhythm, S1, S2 normal Abdomen: soft, non-tender. Bowel sounds normal Extremities: extremities normal, atraumatic, right upper arm cellulitis s/p i& d better Neurologic: Grossly normal Ace Roque MD Oct 21, 2018 18:20
[2018-10-21 20:00] VITALS: BP 111/57
--- NOTE | 2018-10-21 22:03 | General Progress Note ---
Assessment/Plan Problem List: (1) Cellulitis and abscess of upper extremity ICD Codes: L03.119 - Cellulitis of unspecified part of limb; L02.419 - Cutaneous abscess of limb, unspecified SNOMED: 061654810 (2) Drug addiction ICD Codes: F19.20 - Other psychoactive substance dependence, uncomplicated SNOMED: 695385345, 310318840 (3) Dehydration ICD Codes: E86.0 - Dehydration SNOMED: 16083566 (4) Pain management ICD Codes: R52 - Pain, unspecified SNOMED: 128995467 Status: stable Assessment: cellulitis at iv injection site iv drug abuse needs iv abx Subjective ROS Limited/Unobtainable: Yes Allergies: Coded Allergies: No Known Allergies (Unverified , 10/20/18) Objective Last 24 Hour Vital Signs Date Time Temp Pulse Resp B/P (MAP) Pulse Ox O2 Delivery O2 Flow Rate FiO2 10/21/18 20:00 98.9 74 16 111/57 (75) 95 10/21/18 16:00 98.3 75 18 128/75 (92) 95 10/21/18 12:00 97.8 78 20 125/71 (89) 98 10/21/18 09:00 Room Air 10/21/18 08:00 98.4 75 18 105/61 (76) 97 10/21/18 04:00 99.1 69 18 107/60 (76) 98 10/21/18 00:00 97.4 66 18 112/60 (77) 96 Intake and Output 10/20/18 10/21/18 19:00 07:00 Intake Total 635 ml 1205 ml Balance 635 ml 1205 ml Intake Oral 560 ml 400 ml IV Total 75 ml 805 ml # Voids 4 3 # Bowel Movements 2 Laboratory Tests 10/21/18 09:55: White Blood Count 4.8#, Red Blood Count 4.44L, Hemoglobin 12.3L, Hematocrit 36.6L, Mean Corpuscular Volume 83, Mean Corpuscular Hemoglobin 27.7, Mean Corpuscular Hemoglobin Concent 33.5, Red Cell Distribution Width 13.1, Platelet Count 102L, Mean Platelet Volume 6.3L, Neutrophils (%) (Auto) 68.5, Lymphocytes (%) (Auto) 24.4, Monocytes (%) (Auto) 4.6, Eosinophils (%) (Auto) 1.7, Basophils (%) (Auto) 0.8, Sodium Level 138, Potassium Level 3.6, Chloride Level 105, Carbon Dioxide Level 24, Anion Gap 9, Blood Urea Nitrogen 15, Creatinine 0.8, Estimat Glomerular Filtration Rate , Glucose Level 147H, Hemoglobin A1c 5.3 , Osmolality 288L, Uric Acid 5.4, Calcium Level 8.0L, Phosphorus Level 2.6, Magnesium Level 1.6L, Total Bilirubin 0.4, Gamma Glutamyl Transpeptidase 58, Aspartate Amino Transf (AST/SGOT) 40H, Alanine Aminotransferase (ALT/SGPT) 44, Alkaline Phosphatase 80, Total Creatine Kinase 22L, C-Reactive Protein, Quantitative 4.5H, Pro-B-Type Natriuretic Peptide 153H, Total Protein 6.6, Albumin 2.4L, Globulin 4.2, Albumin/Globulin Ratio 0.6L, Triglycerides Level 47 , Cholesterol Level 100, LDL Cholesterol 64, HDL Cholesterol 29L, Cholesterol/ HDL Ratio 3.4, Vitamin B12 Level 395, Folate 18.9, Thyroid Stimulating Hormone ( TSH) 1.236 Height (Feet): 5 Height (Inches): 8.00 Weight (Pounds): 130 Cardiovascular: normal rate Respiratory/Chest: lungs clear Abdomen: soft Filipe Martínez MD Oct 21, 2018 22:03
[2018-10-22] VITALS: BP 112/65
[2018-10-22 04:00] VITALS: BP 120/60
[2018-10-22 08:00] VITALS: BP 123/62
[2018-10-22] MEDS: Docusate 100mg cap ORAL SCH ×3 (08:55→18:04)
--- NOTE | 2018-10-22 09:38 | Nephrology Progress Note ---
Assessment/Plan Problem List: (1) Dehydration (2) Hyponatremia (3) Cellulitis and abscess of upper extremity (4) Drug addiction Assessment: Heroin , Coccain in urine Plan IV mag- DC IV fluid on cefepime and vanco monitor lytes Subjective ROS Limited/Unobtainable: No Objective Objective Last 24 Hour Vital Signs Date Time Temp Pulse Resp B/P (MAP) Pulse Ox O2 Delivery O2 Flow Rate FiO2 10/22/18 04:00 98.5 79 18 120/60 (80) 99 10/22/18 00:00 98.6 91 18 112/65 (81) 95 10/21/18 21:00 Room Air 10/21/18 20:00 98.9 74 16 111/57 (75) 95 10/21/18 16:00 98.3 75 18 128/75 (92) 95 10/21/18 12:00 97.8 78 20 125/71 (89) 98 Intake and Output 10/21/18 10/22/18 19:00 07:00 Intake Total 1176.666 ml 415 ml Balance 1176.666 ml 415 ml Intake Oral 600 ml 360 ml IV Total 576.666 ml 55 ml # Voids 1 4 Laboratory Tests 10/21/18 09:55: White Blood Count 4.8#, Red Blood Count 4.44L, Hemoglobin 12.3L, Hematocrit 36.6L, Mean Corpuscular Volume 83, Mean Corpuscular Hemoglobin 27.7, Mean Corpuscular Hemoglobin Concent 33.5, Red Cell Distribution Width 13.1, Platelet Count 102L, Mean Platelet Volume 6.3L, Neutrophils (%) (Auto) 68.5, Lymphocytes (%) (Auto) 24.4, Monocytes (%) (Auto) 4.6, Eosinophils (%) (Auto) 1.7, Basophils (%) (Auto) 0.8, Sodium Level 138, Potassium Level 3.6, Chloride Level 105, Carbon Dioxide Level 24, Anion Gap 9, Blood Urea Nitrogen 15, Creatinine 0.8, Estimat Glomerular Filtration Rate , Glucose Level 147H, Hemoglobin A1c 5.3 , Osmolality 288L, Uric Acid 5.4, Calcium Level 8.0L, Phosphorus Level 2.6, Magnesium Level 1.6L, Total Bilirubin 0.4, Gamma Glutamyl Transpeptidase 58, Aspartate Amino Transf (AST/SGOT) 40H, Alanine Aminotransferase (ALT/SGPT) 44, Alkaline Phosphatase 80, Total Creatine Kinase 22L, C-Reactive Protein, Quantitative 4.5H, Pro-B-Type Natriuretic Peptide 153H, Total Protein 6.6, Albumin 2.4L, Globulin 4.2, Albumin/Globulin Ratio 0.6L, Triglycerides Level 47 , Cholesterol Level 100, LDL Cholesterol 64, HDL Cholesterol 29L, Cholesterol/ HDL Ratio 3.4, Vitamin B12 Level 395, Folate 18.9, Thyroid Stimulating Hormone ( TSH) 1.236 Height (Feet): 5 Height (Inches): 8.00 Weight (Pounds): 130 General Appearance: no apparent distress Respiratory/Chest: lungs clear Abdomen: soft Extremities: other - right arm improving Praful Bethea MD Oct 22, 2018 09:38
[2018-10-22] MEDS: Cefepime HCl 2 GM in D5W 55 ML IV SCH (10:35)
[2018-10-22 12:00] VITALS: BP 124/64
--- NOTE | 2018-10-22 12:15 | Infectious Diseases Prog Note ---
Assessment/Plan Assessment/Plan IMPRESSION: 1. Right upper extremity cellulitis and abscess. 2. IV drug abuse use heroin. 3. Nicotine dependence. 4. Hearing loss. 5. mild thrombocytopenia. 6. Cataract. RECOMMENDATION: Continue vancomycin May discontinue cefepime Subjective ROS Limited/Unobtainable: No Constitutional: Reports: no symptoms, other - feels better Respiratory: Reports: no symptoms Cardiovascular: Reports: no symptoms Gastrointestinal/Abdominal: Reports: no symptoms Skin: Reports: other - decreased eythma & pain of R arm Allergies: Coded Allergies: No Known Allergies (Unverified , 10/20/18) Objective Vital Signs Last 24 Hour Vital Signs Date Time Temp Pulse Resp B/P (MAP) Pulse Ox O2 Delivery O2 Flow Rate FiO2 10/22/18 09:00 Room Air 10/22/18 08:00 98.7 80 18 123/62 (82) 98 80 10/22/18 04:00 98.5 79 18 120/60 (80) 99 10/22/18 00:00 98.6 91 18 112/65 (81) 95 10/21/18 21:00 Room Air 10/21/18 20:00 98.9 74 16 111/57 (75) 95 10/21/18 16:00 98.3 75 18 128/75 (92) 95 Height (Feet): 5 Height (Inches): 8.00 Weight (Pounds): 130 General Appearance: no acute distress HEENT: mucous membranes moist Respiratory/Chest: lungs clear Cardiovascular: normal rate Abdomen: soft, non tender Extremities: no edema Skin: other - erythema , tederness in R arm above elbow decreasing Neurologic/Psychiatric: alert, oriented x 3, responsive Microbiology Date/Time Source Procedure Growth Status 10/20/18 01:56 Blood Blood Culture - Preliminary NO GROWTH AFTER 48 HOURS Resulted 10/20/18 17:40 Arm Right Gram Stain - Final Resulted 10/20/18 17:40 Arm Right Wound Culture - Preliminary NO GROWTH AFTER 48 HOURS Resulted Current Medications Medications (Trade) Dose Ordered Sig/Lana Route PRN Reason Start Time Stop Time Status Last Admin Dose Admin Acetaminophen (Tylenol) 650 mg Q4H PRN ORAL Mild Pain/Temp > 100.5 10/20/18 11:33 11/19/18 11:32 Acetaminophen/ Hydrocodone Bitart (Emery 5/325) 1 tab Q4H PRN ORAL severe pain 4/17/19 18:45 10/27/18 18:44 10/20/18 22:13 Cefepime HCl 2 gm/ Dextrose 55 ml @ 110 mls/hr EVERY 12 HOURS IV 10/20/18 14:00 10/27/18 13:59 10/22/18 10:35 Docusate Sodium (Colace) 100 mg THREE TIMES A DAY ORAL 10/20/18 13:00 11/19/18 12:59 10/22/18 08:55 Gabapentin (Neurontin) 600 mg THREE TIMES A DAY ORAL 10/20/18 18:45 11/19/18 18:44 10/22/18 08:56 Methadone HCl (Methadone HCl) 5 mg DAILY ORAL 10/21/18 13:05 10/28/18 13:04 10/22/18 08:55 Methadone HCl (Methadone HCl) 100 mg DAILY ORAL 10/21/18 13:06 10/28/18 12:59 10/22/18 08:56 Ondansetron HCl (Zofran) 4 mg Q6H PRN IVP Nausea & Vomiting 10/20/18 11:32 11/19/18 11:31 Pantoprazole (Protonix) 40 mg EVERY 12 HOURS ORAL 10/20/18 21:00 11/19/18 20:59 10/22/18 08:55 Vancomycin HCl (Vanco rx to dose) 1 ea DAILY PRN MISC Per rx protocol 10/20/18 12:15 11/19/18 12:14 Vancomycin HCl/ Dextrose 275 ml @ 183.333 mls/hr Q24H IVPB 10/20/18 14:30 10/25/18 14:29 10/21/18 15:26 Александр Cerda MD Oct 22, 2018 12:15
--- NOTE | 2018-10-22 14:53 | Surgery Progress Note ---
Surgery Progress Note Subjective Additional Comments no acute events. stable. comfortable. edema and cellulitis improved. good improved range of motion Objective Last 24 Hour Vital Signs Date Time Temp Pulse Resp B/P (MAP) Pulse Ox O2 Delivery O2 Flow Rate FiO2 10/22/18 12:00 97.9 86 19 124/64 (84) 98 10/22/18 09:00 Room Air 10/22/18 08:00 98.7 80 18 123/62 (82) 98 80 10/22/18 04:00 98.5 79 18 120/60 (80) 99 10/22/18 00:00 98.6 91 18 112/65 (81) 95 10/21/18 21:00 Room Air 10/21/18 20:00 98.9 74 16 111/57 (75) 95 10/21/18 16:00 98.3 75 18 128/75 (92) 95 I&O Intake and Output 10/21/18 10/22/18 19:00 07:00 Intake Total 1176.666 ml 415 ml Balance 1176.666 ml 415 ml Intake Oral 600 ml 360 ml IV Total 576.666 ml 55 ml # Voids 1 4 Dressing: dry Wound: clean Drains: none Cardiovascular: RSR Respiratory: clear Abdomen: soft, flat, present bowel sounds Extremities: edema, tenderness, no cyanosis Plan Problems: (1) Cellulitis and abscess of upper extremity Assessment & Plan: right upper arm cellulitis from IVDA with heroin. abscess s/ p I&D. on IV Abx small 1cm opening from I&D with bloody drainage packing and dressing changed at bedside by myself. wound evaluated cont with packing and dressing TID will monitor for improvement cont IV ABX AM labs d/c planning to SNF for IV ABx discussed with patient. infection improving but on extremity and was severe. needs full course IV Abx and more improvement but does not need hospital stay will follow with recs. thank you Lucio Marks Oct 22, 2018 14:53
[2018-10-22] MEDS: Vancomycin 1.25gm Premix IVPB SCH (15:41)
[2018-10-22 16:00] VITALS: BP 130/76
--- NOTE | 2018-10-22 17:27 | General Progress Note ---
Assessment/Plan Assessment: Assessment and Recs; # Thrombocytopenia - potential causes multifactorial, early cirrhosis and splenomegaly is noted on us, could also be 2/2 infection, also is HEPATITIS C positive --> hep C needs to be managed as outpatient --> US abdshow Findings nodular contour of the liver and coarsened hepatic echotexture suggestive of cirrhosis. No sonographically appreciable focal hepatic mass lesion. Cholelithiasis without sonographic evidence of acute cholecystitis. Splenomegaly --> Peripheral smear ordered to evaluate for blasts /schistocytes does not show at this time --> abx and other meds have been reviewed --> ok for ppx if plt >50k w/ either heparin or lovenox --> Transfuse if Plt < 20k and fever, or if Plt < 10k without fever # Hyperproteinemia with elev protein and decreased alb --> likely related to chronic ivdu --> SPEP results followup # Leukocytosis with elevated wbc --> recommend abx and s/p i&d # Cellulitis of the right upper ext --> hx of ivdu and now is s/p I&d --> if any bleeding consider vit K --> on abx as per id # IVDU hx with herioin use --> recommend cessation The timing of this note does not necessarily reflect the time of the patient was seen. Greatly appreciate consultation! Subjective Constitutional: Denies: no symptoms, chills, diaphoresis, fever, malaise, weakness, other HEENT: Denies: no symptoms, eye pain, blurred vision, tearing, double vision, ear pain, ear discharge, nose pain, nose congestion, throat pain, throat swelling, mouth pain, mouth swelling, other Cardiovascular: Denies: no symptoms, chest pain, edema, irregular heart rate, lightheadedness, palpitations, syncope, other Respiratory: Denies: no symptoms, cough, orthopnea, shortness of breath, SOB with excertion, SOB at rest, sputum, stridor, wheezing, other Gastrointestinal/Abdominal: Denies: no symptoms, abdomen distended, abdominal pain, black stools, tarry stools, blood in stool, constipated, diarrhea, difficulty swallowing, nausea, poor appetite, poor fluid intake, rectal bleeding , vomiting, other Genitourinary: Denies: no symptoms, burning, discharge, frequency, flank pain, hematuria, incontinence, pain, urgency, other Neurologic/Psychiatric: Denies: no symptoms, anxiety, depressed, emotional problems, headache, numbness, paresthesia, pre-existing deficit, seizure, tingling, tremors, weakness, other Endocrine: Denies: no symptoms, excessive sweating, flushing, intolerance to cold, intolerance to heat, increased hunger, increased thirst, increased urine, unexplained weight gain, unexplained weight loss, other Hematologic/Lymphatic: Denies: no symptoms, anemia, easy bleeding, easy bruising, other Allergies: Coded Allergies: No Known Allergies (Unverified , 10/20/18) Subjective 10/21: on cefe, vanc, getting norco prn, wbc better 10/22: seen by surgery, no events, no fevers or chills, continue on abx Objective Last 24 Hour Vital Signs Date Time Temp Pulse Resp B/P (MAP) Pulse Ox O2 Delivery O2 Flow Rate FiO2 10/22/18 12:00 97.9 86 19 124/64 (84) 98 10/22/18 09:00 Room Air 10/22/18 08:00 98.7 80 18 123/62 (82) 98 80 10/22/18 04:00 98.5 79 18 120/60 (80) 99 10/22/18 00:00 98.6 91 18 112/65 (81) 95 10/21/18 21:00 Room Air 10/21/18 20:00 98.9 74 16 111/57 (75) 95 Intake and Output 10/21/18 10/22/18 19:00 07:00 Intake Total 1176.666 ml 415 ml Balance 1176.666 ml 415 ml Intake Oral 600 ml 360 ml IV Total 576.666 ml 55 ml # Voids 1 4 Height (Feet): 5 Height (Inches): 8.00 Weight (Pounds): 130 Objective Physical Exam General appearance: alert, cooperative, no distress, appears stated age Head: Normocephalic, without obvious abnormality Eyes: conjunctivae/corneas clear. PERRL, EOM's intact Throat: Lips, mucosa, and tongue normal. Teeth Neck: supple, symmetrical, trachea midline, no adenopathy Lungs: clear to auscultation bilaterally Heart: regular rate and rhythm, S1, S2 normal Abdomen: soft, non-tender. Bowel sounds normal Extremities: extremities normal, atraumatic, right upper arm cellulitis s/p i& d better Neurologic: Grossly normal Ace Roque MD Oct 22, 2018 17:27
[2018-10-22 19:58] VITALS: BP 122/73
--- NOTE | 2018-10-22 20:14 | General Progress Note ---
Assessment/Plan Problem List: (1) Cellulitis and abscess of upper extremity ICD Codes: L03.119 - Cellulitis of unspecified part of limb; L02.419 - Cutaneous abscess of limb, unspecified SNOMED: 284302155 (2) Drug addiction ICD Codes: F19.20 - Other psychoactive substance dependence, uncomplicated SNOMED: 358028778, 444788405 (3) Dehydration ICD Codes: E86.0 - Dehydration SNOMED: 23027062 (4) Pain management ICD Codes: R52 - Pain, unspecified SNOMED: 536106384 Status: progressing - k Assessment: needs one more week of iv abx for severe celluitis ue due to iv drug abuse will send ot snf for continuation of iv abx Subjective ROS Limited/Unobtainable: Yes Constitutional: Reports: no symptoms Allergies: Coded Allergies: No Known Allergies (Unverified , 10/20/18) Objective Last 24 Hour Vital Signs Date Time Temp Pulse Resp B/P (MAP) Pulse Ox O2 Delivery O2 Flow Rate FiO2 10/22/18 19:58 99.5 84 16 122/73 (89) 97 10/22/18 16:00 98.5 81 18 130/76 (94) 98 10/22/18 12:00 97.9 86 19 124/64 (84) 98 10/22/18 09:00 Room Air 10/22/18 08:00 98.7 80 18 123/62 (82) 98 80 10/22/18 04:00 98.5 79 18 120/60 (80) 99 10/22/18 00:00 98.6 91 18 112/65 (81) 95 10/21/18 21:00 Room Air Intake and Output 10/21/18 10/22/18 19:00 07:00 Intake Total 1176.666 ml 415 ml Balance 1176.666 ml 415 ml Intake Oral 600 ml 360 ml IV Total 576.666 ml 55 ml # Voids 1 4 Height (Feet): 5 Height (Inches): 8.00 Weight (Pounds): 130 Neck: supple Cardiovascular: normal rate Respiratory/Chest: chest wall non-tender Abdomen: non tender Filipe Martínez MD Oct 22, 2018 20:13
--- NOTE | 2018-10-22 21:23 | Diagnostic Imaging Report ---
EXAM: XR Left Ankle Complete, 3 or More Views CLINICAL HISTORY: SWELL TECHNIQUE: Frontal, lateral and oblique views of the left ankle. COMPARISON: No relevant prior studies available. FINDINGS: Bones/joints: Osteopenia. Suspect ankle mortise joint effusion. No acute fracture. No dislocation. Soft tissues: Mild soft tissue swelling in the anterior aspect of the ankle is suspected. IMPRESSION: Suspect ankle mortise joint effusion
[2018-10-23] VITALS: BP_SYST 123; BP_SYST 134; BP_DIAS 70; BP_DIAS 78
[2018-10-23 04:00] VITALS: BP 134/78
[2018-10-23 08:00] VITALS: BP 126/64
[2018-10-23] MEDS: Docusate 100mg cap ORAL SCH ×3 (08:51→17:37)
[2018-10-23] MEDS ORDERED: COLACE100 MG ORAL (10:29)
[2018-10-23] MEDS ORDERED: GABAPENTIN600 MG ORAL (10:30)
[2018-10-23] MEDS ORDERED: METHADONE HCL5 MG PO (10:30)
[2018-10-23] MEDS ORDERED: METHADONE HCL10 MG PO (10:31)
[2018-10-23] MEDS ORDERED: PANTOPRAZOLE SO40 MG ORAL (10:50)
[2018-10-23] MEDS ORDERED: VANCOMYCIN HC1.25 GM IV (11:06)
[2018-10-23 12:00] VITALS: BP 119/68
[2018-10-23 13:41] LABS: BASOPHILS % (AUTO) 0.6 % (0.0-2.0); EOSINOPHILS % (AUTO) 1.8 % (0.0-3.0); HEMATOCRIT 41.1 % (42.0-52.0); LYMPHOCYTES % (AUTO) 29.3 % (20.0-45.0); MEAN CORPUSCULAR VOLUME 83 FL (80-99); MONOCYTES % (AUTO) 5.6 % (1.0-10.0); NEUTROPHILS % (AUTO) 62.8 % (45.0-75.0); PLATELET COUNT 165 K/UL (150-450); RED BLOOD COUNT 4.94 M/UL (4.70-6.10); RED CELL DISTRIBUTION WIDTH 13.2 % (11.6-14.8); WHITE BLOOD COUNT 7.2 K/UL (4.8-10.8)
[2018-10-23 14:08] LABS: ALANINE AMINOTRANSFERASE 50 U/L (12-78); ALBUMIN 3.2 G/DL (3.4-5.0); ALBUMIN/GLOBULIN RATIO 0.6 (1.0-2.7); ALKALINE PHOSPHATASE 118 U/L (46-116); ANION GAP 5 mmol/L (5-15); ASPARTATE AMINO TRANSFERASE 50 U/L (15-37); BILIRUBIN,TOTAL 0.5 MG/DL (0.2-1.0); BLOOD UREA NITROGEN 14 mg/dL (7-18); CALCIUM 9.1 MG/DL (8.5-10.1); CARBON DIOXIDE 28 MMOL/L (21-32); CHLORIDE 100 MMOL/L (98-107); CREATININE 0.9 MG/DL (0.55-1.30); PHOSPHORUS 3.7 MG/DL (2.5-4.9); POTASSIUM 4.4 MMOL/L (3.5-5.1); SODIUM 133 MMOL/L (136-145)
[2018-10-23] MEDS: Vancomycin 1.25gm Premix IVPB SCH (15:39)
[2018-10-23 16:00] VITALS: BP 126/73
--- NOTE | 2018-10-23 17:24 | Surgery Progress Note ---
Surgery Progress Note Subjective Symptoms: improved, tolerating diet, passing flatus, pain decreased Additional Comments cellulitis improving Objective Last 24 Hour Vital Signs Date Time Temp Pulse Resp B/P (MAP) Pulse Ox O2 Delivery O2 Flow Rate FiO2 10/23/18 16:00 98.8 72 19 126/73 (90) 99 10/23/18 12:00 98.1 74 20 119/68 (85) 98 10/23/18 09:00 Room Air 10/23/18 08:00 97.5 83 20 126/64 (84) 96 10/23/18 04:00 98.6 84 17 134/78 (96) 95 10/23/18 00:00 98.6 84 17 123/70 (87) 98 10/23/18 00:00 98.6 84 17 123/70 (87) 98 10/22/18 21:27 Room Air 10/22/18 19:58 99.5 84 16 122/73 (89) 97 I&O Intake and Output 10/22/18 10/23/18 19:00 07:00 Intake Total 1440 ml 480 ml Output Total 4 ml 600 ml Balance 1436 ml -120 ml Intake Oral 1440 ml 480 ml Output Urine Total 4 ml 600 ml # Voids 6 Dressing: dry Wound: clean, other - edema improved Cardiovascular: RSR Respiratory: clear Abdomen: soft, flat, non-tender, non-distended Extremities: edema, tenderness Laboratory Tests Test 10/23/18 13:20 White Blood Count 7.2 K/UL (4.8-10.8) Red Blood Count 4.94 M/UL (4.70-6.10) Hemoglobin 14.0 G/DL (14.2-18.0) L Hematocrit 41.1 % (42.0-52.0) L Mean Corpuscular Volume 83 FL (80-99) Mean Corpuscular Hemoglobin 28.3 PG (27.0-31.0) Mean Corpuscular Hemoglobin Concent 34.0 G/DL (32.0-36.0) Red Cell Distribution Width 13.2 % (11.6-14.8) Platelet Count 165 K/UL (150-450) Mean Platelet Volume 6.9 FL (6.5-10.1) Neutrophils (%) (Auto) 62.8 % (45.0-75.0) Lymphocytes (%) (Auto) 29.3 % (20.0-45.0) Monocytes (%) (Auto) 5.6 % (1.0-10.0) Eosinophils (%) (Auto) 1.8 % (0.0-3.0) Basophils (%) (Auto) 0.6 % (0.0-2.0) Sodium Level 133 MMOL/L (136-145) L Potassium Level 4.4 MMOL/L (3.5-5.1) Chloride Level 100 MMOL/L (98-107) Carbon Dioxide Level 28 MMOL/L (21-32) Anion Gap 5 mmol/L (5-15) Blood Urea Nitrogen 14 mg/dL (7-18) Creatinine 0.9 MG/DL (0.55-1.30) Estimat Glomerular Filtration Rate mL/min (>60) Glucose Level 87 MG/DL (74-106) Calcium Level 9.1 MG/DL (8.5-10.1) Phosphorus Level 3.7 MG/DL (2.5-4.9) Magnesium Level 1.9 MG/DL (1.8-2.4) Total Bilirubin 0.5 MG/DL (0.2-1.0) Aspartate Amino Transf (AST/SGOT) 50 U/L (15-37) H Alanine Aminotransferase (ALT/SGPT) 50 U/L (12-78) Alkaline Phosphatase 118 U/L (46-116) H C-Reactive Protein, Quantitative 3.8 mg/dL (0.00-0.90) H Total Protein 8.4 G/DL (6.4-8.2) H Albumin 3.2 G/DL (3.4-5.0) L Globulin 5.2 g/dL Albumin/Globulin Ratio 0.6 (1.0-2.7) L Vancomycin Level Trough 5.3 ug/mL (5.0-12.0) Plan Problems: (1) Cellulitis and abscess of upper extremity Assessment & Plan: right upper arm cellulitis from IVDA with heroin. abscess s/ p I&D. on IV Abx small 1cm opening from I&D with bloody drainage packing and dressing changed at bedside by myself. wound evaluated cont with packing and dressing TID will monitor for improvement cont IV ABX AM labs d/c planning to SNF for IV ABx discussed with patient. infection improving but on extremity and was severe. needs full course IV Abx and more improvement but does not need hospital stay will follow with recs. thank you Lucio Marks Oct 23, 2018 17:24
--- NOTE | 2018-10-23 17:57 | Nephrology Progress Note ---
Assessment/Plan Problem List: (1) Dehydration (2) Hyponatremia (3) Cellulitis and abscess of upper extremity (4) Drug addiction Assessment: Heroin , Coccain in urine Plan IV mag- DC IV fluid on vanco now monitor lytes Subjective ROS Limited/Unobtainable: No Objective Objective Last 24 Hour Vital Signs Date Time Temp Pulse Resp B/P (MAP) Pulse Ox O2 Delivery O2 Flow Rate FiO2 10/23/18 16:00 98.8 72 19 126/73 (90) 99 10/23/18 12:00 98.1 74 20 119/68 (85) 98 10/23/18 09:00 Room Air 10/23/18 08:00 97.5 83 20 126/64 (84) 96 10/23/18 04:00 98.6 84 17 134/78 (96) 95 10/23/18 00:00 98.6 84 17 123/70 (87) 98 10/23/18 00:00 98.6 84 17 123/70 (87) 98 10/22/18 21:27 Room Air 10/22/18 19:58 99.5 84 16 122/73 (89) 97 Intake and Output 10/22/18 10/23/18 19:00 07:00 Intake Total 1440 ml 480 ml Output Total 4 ml 600 ml Balance 1436 ml -120 ml Intake Oral 1440 ml 480 ml Output Urine Total 4 ml 600 ml # Voids 6 Laboratory Tests 10/23/18 13:20: White Blood Count 7.2, Red Blood Count 4.94, Hemoglobin 14.0L, Hematocrit 41.1L , Mean Corpuscular Volume 83, Mean Corpuscular Hemoglobin 28.3, Mean Corpuscular Hemoglobin Concent 34.0, Red Cell Distribution Width 13.2, Platelet Count 165, Mean Platelet Volume 6.9, Neutrophils (%) (Auto) 62.8, Lymphocytes (% ) (Auto) 29.3, Monocytes (%) (Auto) 5.6, Eosinophils (%) (Auto) 1.8, Basophils ( %) (Auto) 0.6, Sodium Level 133L, Potassium Level 4.4, Chloride Level 100, Carbon Dioxide Level 28, Anion Gap 5, Blood Urea Nitrogen 14, Creatinine 0.9, Estimat Glomerular Filtration Rate , Glucose Level 87, Calcium Level 9.1, Phosphorus Level 3.7, Magnesium Level 1.9, Total Bilirubin 0.5, Aspartate Amino Transf (AST/SGOT) 50H, Alanine Aminotransferase (ALT/SGPT) 50, Alkaline Phosphatase 118H, C-Reactive Protein, Quantitative 3.8H, Total Protein 8.4H, Albumin 3.2L, Globulin 5.2, Albumin/Globulin Ratio 0.6L, Vancomycin Level Trough 5.3 Height (Feet): 5 Height (Inches): 8.00 Weight (Pounds): 130 General Appearance: no apparent distress Extremities: other - right arm cellulitis / abcess much improved Praful Bethea MD Oct 23, 2018 17:57
[2018-10-23 19:56] VITALS: BP 116/71
--- NOTE | 2018-10-23 22:23 | General Progress Note ---
Assessment/Plan Problem List: (1) Cellulitis and abscess of upper extremity ICD Codes: L03.119 - Cellulitis of unspecified part of limb; L02.419 - Cutaneous abscess of limb, unspecified SNOMED: 331759260 (2) Drug addiction ICD Codes: F19.20 - Other psychoactive substance dependence, uncomplicated SNOMED: 476959943, 566203868 (3) Dehydration ICD Codes: E86.0 - Dehydration SNOMED: 89298442 (4) Pain management ICD Codes: R52 - Pain, unspecified SNOMED: 163566226 Status: stable Assessment: cellluitis of ue is improving afebirle iv drug abuse no abscess Subjective ROS Limited/Unobtainable: Yes Allergies: Coded Allergies: No Known Allergies (Unverified , 10/20/18) Objective Last 24 Hour Vital Signs Date Time Temp Pulse Resp B/P (MAP) Pulse Ox O2 Delivery O2 Flow Rate FiO2 10/23/18 19:56 98.6 82 18 116/71 (86) 98 10/23/18 16:00 98.8 72 19 126/73 (90) 99 10/23/18 12:00 98.1 74 20 119/68 (85) 98 10/23/18 09:00 Room Air 10/23/18 08:00 97.5 83 20 126/64 (84) 96 10/23/18 04:00 98.6 84 17 134/78 (96) 95 10/23/18 00:00 98.6 84 17 123/70 (87) 98 10/23/18 00:00 98.6 84 17 123/70 (87) 98 Intake and Output 10/22/18 10/23/18 19:00 07:00 Intake Total 1440 ml 480 ml Output Total 4 ml 600 ml Balance 1436 ml -120 ml Intake Oral 1440 ml 480 ml Output Urine Total 4 ml 600 ml # Voids 6 Laboratory Tests 10/23/18 13:20: White Blood Count 7.2, Red Blood Count 4.94, Hemoglobin 14.0L, Hematocrit 41.1L , Mean Corpuscular Volume 83, Mean Corpuscular Hemoglobin 28.3, Mean Corpuscular Hemoglobin Concent 34.0, Red Cell Distribution Width 13.2, Platelet Count 165, Mean Platelet Volume 6.9, Neutrophils (%) (Auto) 62.8, Lymphocytes (% ) (Auto) 29.3, Monocytes (%) (Auto) 5.6, Eosinophils (%) (Auto) 1.8, Basophils ( %) (Auto) 0.6, Sodium Level 133L, Potassium Level 4.4, Chloride Level 100, Carbon Dioxide Level 28, Anion Gap 5, Blood Urea Nitrogen 14, Creatinine 0.9, Estimat Glomerular Filtration Rate , Glucose Level 87, Uric Acid 4.2, Calcium Level 9.1, Phosphorus Level 3.7, Magnesium Level 1.9, Total Bilirubin 0.5, Aspartate Amino Transf (AST/SGOT) 50H, Alanine Aminotransferase (ALT/SGPT) 50, Alkaline Phosphatase 118H, C-Reactive Protein, Quantitative 3.8H, Total Protein 8.4H, Albumin 3.2L, Globulin 5.2, Albumin/Globulin Ratio 0.6L, Vancomycin Level Trough 5.3 Height (Feet): 5 Height (Inches): 8.00 Weight (Pounds): 130 Cardiovascular: normal rate Respiratory/Chest: lungs clear Abdomen: soft Filipe Martínez MD Oct 23, 2018 22:23
[2018-10-24] VITALS: BP 114/82
[2018-10-24 04:00] VITALS: BP 124/72
[2018-10-24] MEDS: Vancomycin 1.25gm Premix IVPB SCH (06:02)
[2018-10-24 08:00] VITALS: BP 125/69
[2018-10-24] MEDS: Docusate 100mg cap ORAL SCH ×2 (09:29→13:00)
--- NOTE | 2018-10-24 11:15 | Nephrology Progress Note ---
Assessment/Plan Problem List: (1) Dehydration (2) Hyponatremia (3) Cellulitis and abscess of upper extremity (4) Drug addiction Assessment: Heroin , Coccain in urine Plan no labs IV mag- as needed DC IV fluid on vanco now monitor lytes ? Dc Subjective ROS Limited/Unobtainable: No Objective Objective Last 24 Hour Vital Signs Date Time Temp Pulse Resp B/P (MAP) Pulse Ox O2 Delivery O2 Flow Rate FiO2 10/24/18 09:00 Room Air 10/24/18 08:00 98.1 72 16 125/69 (87) 98 10/24/18 04:00 98.3 75 18 124/72 (89) 98 10/24/18 00:00 98.2 94 18 114/82 (93) 97 10/23/18 21:00 Room Air 10/23/18 19:56 98.6 82 18 116/71 (86) 98 10/23/18 16:00 98.8 72 19 126/73 (90) 99 10/23/18 12:00 98.1 74 20 119/68 (85) 98 Intake and Output 10/23/18 10/24/18 19:00 07:00 Intake Total 366.666 ml 950 ml Balance 366.666 ml 950 ml IV Total 366.666 ml Other 950 ml # Voids 4 Laboratory Tests 10/23/18 13:20: White Blood Count 7.2, Red Blood Count 4.94, Hemoglobin 14.0L, Hematocrit 41.1L , Mean Corpuscular Volume 83, Mean Corpuscular Hemoglobin 28.3, Mean Corpuscular Hemoglobin Concent 34.0, Red Cell Distribution Width 13.2, Platelet Count 165, Mean Platelet Volume 6.9, Neutrophils (%) (Auto) 62.8, Lymphocytes (% ) (Auto) 29.3, Monocytes (%) (Auto) 5.6, Eosinophils (%) (Auto) 1.8, Basophils ( %) (Auto) 0.6, Sodium Level 133L, Potassium Level 4.4, Chloride Level 100, Carbon Dioxide Level 28, Anion Gap 5, Blood Urea Nitrogen 14, Creatinine 0.9, Estimat Glomerular Filtration Rate , Glucose Level 87, Uric Acid 4.2, Calcium Level 9.1, Phosphorus Level 3.7, Magnesium Level 1.9, Total Bilirubin 0.5, Aspartate Amino Transf (AST/SGOT) 50H, Alanine Aminotransferase (ALT/SGPT) 50, Alkaline Phosphatase 118H, C-Reactive Protein, Quantitative 3.8H, Total Protein 8.4H, Albumin 3.2L, Globulin 5.2, Albumin/Globulin Ratio 0.6L, Vancomycin Level Trough 5.3 10/24/18 06:46: Urine Opiates Screen PositiveH, Urine Barbiturates Screen Negative, Phencyclidine (PCP) Screen Negative, Urine Amphetamines Screen PositiveH, Urine Benzodiazepines Screen Negative, Urine Cocaine Screen PositiveH, Urine Marijuana (THC) Screen Negative Height (Feet): 5 Height (Inches): 8.00 Weight (Pounds): 130 General Appearance: no apparent distress Objective no change Praful Bethea MD Oct 24, 2018 11:15
--- NOTE | 2018-10-24 11:48 | Infectious Diseases Prog Note ---
Assessment/Plan Assessment/Plan IMPRESSION: 1. Right upper extremity cellulitis and abscess.Strep viridans in culture 2. IV drug abuse use heroin.Cocaine & Amphetamine 3. Nicotine dependence. 4. Hearing loss. 5. mild thrombocytopenia. 6. Cataract. RECOMMENDATION: Can be discharged with PO Keflex & Doxycycline Subjective ROS Limited/Unobtainable: No HEENT: Reports: no symptoms Cardiovascular: Reports: no symptoms Gastrointestinal/Abdominal: Reports: no symptoms Genitourinary: Reports: no symptoms Psychiatric: Reports: other - continue Drug abuse & smoking in hospital Musculoskeletal: Reports: pain, swelling, other - left ankle Allergies: Coded Allergies: No Known Allergies (Unverified , 10/20/18) Objective Vital Signs Last 24 Hour Vital Signs Date Time Temp Pulse Resp B/P (MAP) Pulse Ox O2 Delivery O2 Flow Rate FiO2 10/24/18 09:00 Room Air 10/24/18 08:00 98.1 72 16 125/69 (87) 98 10/24/18 04:00 98.3 75 18 124/72 (89) 98 10/24/18 00:00 98.2 94 18 114/82 (93) 97 10/23/18 21:00 Room Air 10/23/18 19:56 98.6 82 18 116/71 (86) 98 10/23/18 16:00 98.8 72 19 126/73 (90) 99 10/23/18 12:00 98.1 74 20 119/68 (85) 98 Height (Feet): 5 Height (Inches): 8.00 Weight (Pounds): 130 General Appearance: no acute distress HEENT: mucous membranes moist Respiratory/Chest: lungs clear Cardiovascular: normal rate Abdomen: normal bowel sounds Extremities: other - left external ankle bruise & swelling Laboratory Tests Test 10/23/18 13:20 10/24/18 06:46 White Blood Count 7.2 K/UL (4.8-10.8) Red Blood Count 4.94 M/UL (4.70-6.10) Hemoglobin 14.0 G/DL (14.2-18.0) L Hematocrit 41.1 % (42.0-52.0) L Mean Corpuscular Volume 83 FL (80-99) Mean Corpuscular Hemoglobin 28.3 PG (27.0-31.0) Mean Corpuscular Hemoglobin Concent 34.0 G/DL (32.0-36.0) Red Cell Distribution Width 13.2 % (11.6-14.8) Platelet Count 165 K/UL (150-450) Mean Platelet Volume 6.9 FL (6.5-10.1) Neutrophils (%) (Auto) 62.8 % (45.0-75.0) Lymphocytes (%) (Auto) 29.3 % (20.0-45.0) Monocytes (%) (Auto) 5.6 % (1.0-10.0) Eosinophils (%) (Auto) 1.8 % (0.0-3.0) Basophils (%) (Auto) 0.6 % (0.0-2.0) Sodium Level 133 MMOL/L (136-145) L Potassium Level 4.4 MMOL/L (3.5-5.1) Chloride Level 100 MMOL/L (98-107) Carbon Dioxide Level 28 MMOL/L (21-32) Anion Gap 5 mmol/L (5-15) Blood Urea Nitrogen 14 mg/dL (7-18) Creatinine 0.9 MG/DL (0.55-1.30) Estimat Glomerular Filtration Rate mL/min (>60) Glucose Level 87 MG/DL (74-106) Uric Acid 4.2 MG/DL (2.6-7.2) Calcium Level 9.1 MG/DL (8.5-10.1) Phosphorus Level 3.7 MG/DL (2.5-4.9) Magnesium Level 1.9 MG/DL (1.8-2.4) Total Bilirubin 0.5 MG/DL (0.2-1.0) Aspartate Amino Transf (AST/SGOT) 50 U/L (15-37) H Alanine Aminotransferase (ALT/SGPT) 50 U/L (12-78) Alkaline Phosphatase 118 U/L (46-116) H C-Reactive Protein, Quantitative 3.8 mg/dL (0.00-0.90) H Total Protein 8.4 G/DL (6.4-8.2) H Albumin 3.2 G/DL (3.4-5.0) L Globulin 5.2 g/dL Albumin/Globulin Ratio 0.6 (1.0-2.7) L Vancomycin Level Trough 5.3 ug/mL (5.0-12.0) Urine Opiates Screen Positive (NEGATIVE) H Urine Barbiturates Screen Negative (NEGATIVE) Phencyclidine (PCP) Screen Negative (NEGATIVE) Urine Amphetamines Screen Positive (NEGATIVE) H Urine Benzodiazepines Screen Negative (NEGATIVE) Urine Cocaine Screen Positive (NEGATIVE) H Urine Marijuana (THC) Screen Negative (NEGATIVE) Current Medications Medications (Trade) Dose Ordered Sig/Lana Route PRN Reason Start Time Stop Time Status Last Admin Dose Admin Acetaminophen (Tylenol) 650 mg Q4H PRN ORAL Mild Pain/Temp > 100.5 10/20/18 11:33 11/19/18 11:32 Acetaminophen/ Hydrocodone Bitart ([place] 5/325) 1 tab Q4H PRN ORAL severe pain 10/20/18 18:45 10/27/18 18:44 10/20/18 22:13 Docusate Sodium (Colace) 100 mg THREE TIMES A DAY ORAL 10/20/18 13:00 11/19/18 12:59 10/24/18 09:29 Gabapentin (Neurontin) 600 mg THREE TIMES A DAY ORAL 10/20/18 18:45 11/19/18 18:44 10/24/18 09:29 Methadone HCl (Methadone HCl) 5 mg DAILY ORAL 10/21/18 13:05 10/28/18 13:04 10/24/18 09:29 Methadone HCl (Methadone HCl) 100 mg DAILY ORAL 10/21/18 13:06 10/28/18 12:59 10/24/18 09:29 Ondansetron HCl (Zofran) 4 mg Q6H PRN IVP Nausea & Vomiting 10/20/18 11:32 11/19/18 11:31 Pantoprazole (Protonix) 40 mg EVERY 12 HOURS ORAL 10/20/18 21:00 11/19/18 20:59 10/24/18 09:29 Vancomycin HCl (Vanco rx to dose) 1 ea DAILY PRN MISC Per rx protocol 10/20/18 12:15 11/19/18 12:14 Vancomycin HCl/ Dextrose 275 ml @ 183.333 mls/hr Q12HR@0600,1800 IVPB 10/23/18 15:30 10/28/18 15:29 10/24/18 06:02 Александр Cerda MD Oct 24, 2018 11:48
[2018-10-24 12:00] VITALS: BP 112/71
--- NOTE | 2018-10-24 15:40 | Surgery Progress Note ---
Surgery Progress Note Subjective Additional Comments patient found to be using IVDA in room and smoking per report. tested positive for amphetamines and cocaine. has recently had visitors in room with him. has stated he needs to get a fix. exam improved. labs improved. Objective Last 24 Hour Vital Signs Date Time Temp Pulse Resp B/P (MAP) Pulse Ox O2 Delivery O2 Flow Rate FiO2 10/24/18 12:00 97.5 89 20 112/71 (85) 98 10/24/18 09:00 Room Air 10/24/18 08:00 98.1 72 16 125/69 (87) 98 10/24/18 04:00 98.3 75 18 124/72 (89) 98 10/24/18 00:00 98.2 94 18 114/82 (93) 97 10/23/18 21:00 Room Air 10/23/18 19:56 98.6 82 18 116/71 (86) 98 10/23/18 16:00 98.8 72 19 126/73 (90) 99 I&O Intake and Output 10/23/18 10/24/18 19:00 07:00 Intake Total 366.666 ml 950 ml Balance 366.666 ml 950 ml IV Total 366.666 ml Other 950 ml # Voids 4 Dressing: dry Wound: clean Cardiovascular: RSR Respiratory: clear Abdomen: soft, present bowel sounds Extremities: edema - improving , no tenderness, no cyanosis Laboratory Tests Test 10/24/18 06:46 Urine Opiates Screen Positive (NEGATIVE) H Urine Barbiturates Screen Negative (NEGATIVE) Phencyclidine (PCP) Screen Negative (NEGATIVE) Urine Amphetamines Screen Positive (NEGATIVE) H Urine Benzodiazepines Screen Negative (NEGATIVE) Urine Cocaine Screen Positive (NEGATIVE) H Urine Marijuana (THC) Screen Negative (NEGATIVE) Plan Problems: (1) Cellulitis and abscess of upper extremity Assessment & Plan: right upper arm cellulitis from IVDA with heroin. abscess s/ p I&D. on IV Abx small 1cm opening from I&D with bloody drainage packing and dressing changed at bedside by myself. wound evaluated cont with packing and dressing TID will monitor for improvement cont IV ABX AM labs d/c on oral abx today time of note does not reflect time patient seen thank you Lucio Marks Oct 24, 2018 15:40
--- NOTE | 2018-10-25 10:31 | Discharge Summary ---
Discharge Summary Discharge Summary _ DATE OF ADMISSION: 10/20/2018 DATE OF DISCHARGE: 10/24/2018 DISCHARGED BY: REASON FOR ADMISSION: 73 years old male with increased right upper extremity swelling and pain. Swelling of the right upper extremity occurred after he injected himself with heroin. Onset of symptoms happened occurred about 4 days ago. Patient denied any fevers or chills. Upon presentation vital signs were stable Laboratory workup revealed mild leukocytosis WBC 11.6, stable hemoglobin and hematocrit. Sodium 132. BUN 20, creatinine 0.9. Lactic acid 1.5 9. Stable LFT and electrolytes. Albumin 3.5. Urine toxicology screen was positive for cocaine and opiates. In emergency department patient undergone incision and drainage of the abscess of the right upper arm. Patient tolerated procedure well. Patient subsequently was admitted to medical surgical floor for further management. CONSULTANTS: ID specialist Dr. Angelo blue leather setter Dr. Bethea customer experience manager/oncologist Dr. Roque surgery Dr. Marks pain specialist Dr. Vasques HOSPITAL COURSE: Patient admitted to medical surgical floor. Pain management was addressed as per pain specialist recommendation. Patient was on maintenance dose of methadone. Infectious disease specialist closely followed. Blood cultures were negative. Wound culture revealed Streptococci viridans. Antibiotics provided as per infectious disease specialist recommendations. Patient was on IV antibiotics while in the hospital and was discharged on oral Keflex and doxycycline to complete the course as outpatient. Surgeon closely followed for wound care. Patient status post incision and drainage of the abscess in the emergency department. Patient was continued on IV antibiotics. Wound care provided with the packing and dressing surgeon recommended continue packing and dressing as outpatient. Patient was referred to home health services for wound care. Urine toxicology screen was positive for cocaine and opiates repeated urine toxicology screen was positive for opiates amphetamine and cocaine patient also reported nicotine dependency. Patient declined nicotine patch. Patient was found in the room using IV drug and smoking. Repeated urine toxicology screen on 10/24 was positive for amphetamine, opiates and cocaine . Patient was counseled on abstinence from illicit street drugs. Patient declined nicotine patch Marble Mason followed. Patient initially provided with IV fluids. Hyponatremia workup was done. Renal parameters and electrolytes were closely monitored. Electrolytes/magnesium repleted. IV fluids discontinued. Marble Mason recommended to avoid nephrotoxic. Radio Maintainer followed. Patient with evidence of thrombocytopenia, which resolved ; prior to discharge platelet count 165. Hepatitis panel revealed evidence of hepatitis C. HIV test was nonreactive. Abdominal ultrasound demonstrated normal bilateral kidney echogenicity , nodular contour of the liver and coarsened hepatic echotexture suggestive of cirrhosis. No sonographically appreciated focal hepatic mass lesion. Cholelithiasis without sonographic evidence of acute cholecystitis . Per customer experience manager , thrombocytopenia potentially has multifactorial causes , but in this causes was likely due to early cirrhosis and splenomegaly, which were noted on ultrasound. Thrombocytopenia could also be manifested secondary to infection. Patient was recommended hepatitis C management as outpatient. Peripheral blood smear review did not show any blasts or schistocytes. Patient clinically stabilized and was ready for discharge home. Patient was referred to home health agency for wound care. FINAL DIAGNOSES: Right upper extremity cellulitis and abscess Status post I&D of right upper extremity abscess IV drug abuse Polysubstance abuse including cocaine amphetamine and heroin, Nicotine dependency Thrombocytopenia ,resolved Dehydration Hepatitis C Early cirrhosis Hyponatremia Methadone maintenance DISCHARGE MEDICATIONS: See Medication Reconciliation list. DISCHARGE INSTRUCTIONS: Patient was discharged home with home health services referral for wound care. Follow up with primary care provider in one week. Patient was counseled on abstinence from all illicit street drugs. I have been assigned to dictate discharge summary for this account. I was not involved in the patient's management. Mallorie Glover NP Oct 25, 2018 10:31
== END 2018-10-24 13:20 | disposition home or self-care (01) | DRG 364 ==
LOC: EMR 10-20 00:27 → 4E 10-20 03:13 → EDBEDREQ 10-20 04:21 → OBSVTOIN 10-20 06:54 → 4E 10-23 20:37
PROC: 0J9D0ZZ Drainage of Right Upper Arm Subcutaneous Tissue and Fascia, Open Approach (ICD-10-PCS; principal; 2018-10-20)
DX: L02.413 Cutaneous abscess of right upper limb (principal); D69.6 Thrombocytopenia, unspecified; E88.09 Other disorders of plasma-protein metabolism, not elsewhere classified; F11.20 Opioid dependence, uncomplicated; E87.1 Hypo-osmolality and hyponatremia; E86.0 Dehydration; K74.60 Unspecified cirrhosis of liver; L03.113 Cellulitis of right upper limb; F17.200 Nicotine dependence, unspecified, uncomplicated; B19.20 Unspecified viral hepatitis C without hepatic coma; F15.10 Other stimulant abuse, uncomplicated; F14.10 Cocaine abuse, uncomplicated; H91.90 Unspecified hearing loss, unspecified ear; Z88.8 Allergy status to other drugs, medicaments and biological substances; H26.9 Unspecified cataract
CPT/HCPCS: 36415; 76700; 80053; 80061; 80202; 80307; 81001; 82550; 82607; 82746; 82977; 83036; 83605; 83735; 83880; 83930; 83935; 84100; 84165; 84443; 84550; 85025; 85044; 85610; 86140; 86703; 86705; 86709; 86803; 87040; 87070; 87205; 87340; 96365; 99285

== ENCOUNTER → 2020-08-12 | Emergency (ER) | payer MEDICARE, MEDICAID ==
[~2020-08-12] VITALS: Ht 172.7 cm; Wt 45.4 kg
[~2020-08-12] MED LIST: BACTRIM DS TAB1 EAC1 ORAL; Bactrim-DS 1 tab ORAL ONE; CEPHALEXIN500 MG ORAL; COLACE100 MG ORAL; Cephalexin 500mg cap ORAL ONE; GABAPENTIN600 MG ORAL; HYDROCODON-ACE1 EA15 ORAL; HYDROcodone/Acetamin 5/325 tab ORAL ONE; METHADONE HCL10 MG PO; METHADONE HCL5 MG PO; NEURONTIN800 MG ORAL; PANTOPRAZOLE SO40 MG ORAL; VANCOMYCIN HC1.25 GM IV
[2020-08-12 00:05] VITALS: BP 138/85
--- NOTE | 2020-08-12 00:05 | NUR ---
ED Nurse Note: Pt walked into ED from home c/o left hand pain, redness and swelling after injecting heroin on 08/09/20. Pt denies tingling, numbness. Denies fever or chills.
--- NOTE | 2020-08-12 00:26 | Emergency Room Report ---
History of Present Illness General Chief Complaint: Upper Extremity Injury Source: Patient Present Illness HPI Is a 75-year-old male who presents with chief complaint of redness. He has IV drug user with heroin. Also uses cocaine in the past. He is in a methadone clinic. He said he has not had his methadone for last couple days. He inject himself on the dorsum of his left hand with heroin a few days ago. He started having pain because he said he missed the vein. Pain was ongoing for last couple days but now swelling started today. The still some redness. He was admitted here before for similar complaint with abscess. Denies any fever chills. No nausea no vomiting. Pain is 8 out of 10. Worse with palpation. Worse with movement. 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 COVID-19 Screening: Negative COVID-19 COVID-19 Testing Source: unknown Patient History Past Medical History: see triage record, old chart reviewed Past Surgical History: other Pertinent Family History: none Social History: Denies: smoking Immunizations: other Reviewed Nursing Documentation: PMH: Agreed; PSxH: Agreed Nursing Documentation-PMH Past Medical History: No History, Except For Review of Systems Eye: Denies: eye pain, blurred vision ENT: Denies: ear pain, nose congestion, throat swelling Respiratory: Denies: cough, shortness of breath Cardiovascular: Denies: chest pain, palpitations Gastrointestinal: Denies: abdominal pain, diarrhea, nausea, vomiting Musculoskeletal: Reports: muscle pain; Denies: back pain, joint pain Skin: Denies: rash Neurological: Denies: headache, numbness Endocrine: Denies: increased thirst, increased urine Hematologic/Lymphatic: Denies: easy bruising All Other Systems: negative except mentioned in HPI Physical Exam Vital Signs Date Time Temp Pulse Resp B/P (MAP) Pulse Ox O2 Delivery O2 Flow Rate FiO2 08/12/20 00:03 98.1 94 18 138/85 (102) 100 Room Air Vitals normal Sp02 EP Interpretation: reviewed, normal General Appearance: well appearing, no apparent distress, alert Head: normocephalic, atraumatic Eyes: bilateral eye PERRL, bilateral eye EOMI ENT: hearing grossly normal, normal pharynx Neck: full range of motion, supple, no meningismus Respiratory: chest non-tender, lungs clear, normal breath sounds Cardiovascular #1: regular rate, rhythm, no murmur Gastrointestinal: normal bowel sounds, non tender, no mass, no organomegaly, no bruit, non-distended Musculoskeletal: back normal, normal range of motion, gait/station normal, other - Left hand: There is edema to the dorsum of his left hand. There is also with redness. There is no fluctuant or abscess seen. Full range of motion of his fingers. Psychiatric: mood/affect normal Medical Decision Making Diagnostic Impression: Primary Impression: Cellulitis of left hand excluding fingers and thumb Additional Impression: Heroin abuse ER Course This patient presents with cellulitis of his hand. No evidence of a septic joint. At this moment in time, I did not palpate any abscess that can be I&D. Patient was admitted here before and wound culture grew out strep viridans. I gave him Keflex and Bactrim to cover for strep and staph infection. He has 2 rings on which I removed to decrease the risk of strangulation of his fingers from edema. Last Vital Signs Date Time Temp Pulse Resp B/P (MAP) Pulse Ox O2 Delivery O2 Flow Rate FiO2 08/12/20 00:05 98.1 83 18 138/85 100 Room Air Status: improved Disposition: HOME, SELF-CARE Condition: Stable Scripts Cephalexin* (KEFLEX*) 500 Mg Capsule 500 MG ORAL TID, #21 CAP Prov: Mook Slaughter MD 08/12/20 Hydrocodone/Acetaminophen 5-325* (HYDROCODONE/ACETAMINOPHEN 5-325*) 1 Each Tablet 1 TAB ORAL Q6H PRN for For Pain, #10 TAB 0 Refills Prov: Mook Slaughter MD 08/12/20 Trimethoprim/Sulfamethoxazole 160/800* (BACTRIM DS TABLET*) 1 Each Tablet 1 TAB ORAL Q12H, #14 TAB 0 Refills Prov: Mook Slaughter MD 08/12/20 Referrals: NOT CHOSEN IPA/,REFERRING (PCP) Additional Instructions: Abstain from drugs. Keep hand elevated. Ice pack to the area. Follow-up with the methadone clinic for your pain medication. Follow-up your doctor in 2 to 3 days for recheck. Return for fever or worsening of symptoms. Mook Slaughter MD Aug 12, 2020 00:26
[2020-08-12 00:34] VITALS: BP 138/72
--- NOTE | 2020-08-12 00:34 | NUR ---
ER DISCHARGE NOTE: Patient is cleared to be discharged per ERMD, pt is aox4, on room air, with stable vital signs. pt was given dc and prescription instructions, pt was able to verbalize understanding, pt id band and iv site removed without complications. pt is able to ambulate with steady gait. pt took all belongings.
== END | disposition home or self-care (01) ==
LOC: EMR 00:19
DX: L03.114 Cellulitis of left upper limb (principal); F11.10 Opioid abuse, uncomplicated
CPT/HCPCS: 99282